=== PATIENT | female | born 1980 | race Caucasian/White ===

== ENCOUNTER 2021-11-01 09:51 | Outpatient (REF) | payer OTHER, SELFPAY ==
[2021-11-01 10:08] LABS: MANUAL DIFF FLAG NO
[2021-11-01 10:41] LABS: Basophils Absolute Auto 0.1 X10*3/uL (0.0-0.2); Basophils Percent Auto 0.6 % (0-2); Eosinophils Absolute Auto 0.1 X10*3/uL (0.0-0.4); Eosinophils Percent Auto 1.7 % (0-4); Hematocrit 39.1 % (37.0-47.0); Imm Gran Abs Auto 0.02 X10*3/uL (0.00-0.03); Imm Gran Pct Auto 0.2 % (0.0-0.4); Lymphocytes Absolute Auto 2.2 X10*3/uL (1.2-4.9); Lymphocytes Percent Auto 27.1 % (20-40); Mean Corpuscular HGB Conc 33.2 g/dl (31.0-35.0); Mean Corpuscular Hemoglobin 30.3 pg (27.0-33.0); Mean Corpuscular Volume 91.1 fL (80.0-98.0); Mean Platelet Volume 10.3 fL (9.4-12.3); Monocytes Absolute Auto 0.7 X10*3/uL (0.1-1.2); Monocytes Percent Auto 8.6 % (2-11); Neutrophils Absolute Auto 4.9 x10*3/uL (2.0-8.3); Neutrophils Percent Auto 61.8 % (45-73); Platelet Count 341 X10*3/uL (160-400); Red Blood Count 4.29 X10*6/uL (4.20-5.50)
[2021-11-01 10:59] LABS: Alanine Aminotransferase 18 U/L (0-31); Albumin Level 4.3 g/dL (3.5-5.0); Alkaline Phosphatase 62 U/L (39-117); Anion Gap 11 (12-20); Aspartate Amino Transferase 15 U/L (5-31); Bilirubin Total 1.2 mg/dL (0.0-1.0); Blood Urea Nitrogen 10 mg/dL (9-16); Calcium 9.5 mg/dL (8.4-10.2); Carbon Dioxide 26 mmol/L (22-29); Chloride 107 mmol/L (96-108); Cholesterol 170 mg/dL; Estimated Glomerular Filt Rate > 60; Glucose Fasting 91 mg/dL (60-99); HDL Cholesterol 43 mg/dL; LDL Cholesterol Calculated 110 mg/dl; Potassium 4.9 mmol/L (3.3-5.1); Sodium 139 mmol/L (135-145); Total Protein 7.3 g/dL (6.5-8.0); Triglycerides 89 mg/dL
[2021-11-01 11:07] LABS: Appearance Urine HAZY; Color Urine YELLOW; Glucose Urine UA NEG (NEG); Leukocyte Esterase Urine NEG (NEG); Nitrite Urine NEG (NEG); Specific Gravity - Urine 1.025 (1.005-1.025); Urine Blood NEG (NEG); Urine Ketones NEG (NEG); Urine Protein NEG (NEG-TRACE)
[2021-11-01 11:19] LABS: TSH reflex Free T4 1.54 uIU/mL (0.32-4.0)
== END 2021-11-01 09:52 | disposition home or self-care (01) ==
LOC: HO.LAB 09:51
PROVIDERS: PCP Internal Medicine; Visit Provider Internal Medicine
DX: Z00.00 Encounter for general adult medical examination without abnormal findings (principal); E66.9 Obesity, unspecified
CPT/HCPCS: 36415; 80053; 80061; 81003; 84443; 85025

== ENCOUNTER 2023-03-16 13:55 | Outpatient (AMB) | payer OTHER, SELFPAY ==
[2023-03-16 14:16] VITALS: BP 118/70; PULSE 102; O2SAT 97; BMI 37.4
--- NOTE | 2023-03-16 14:16 | MHC.PC.OV ---
Vital Signs 03/16/23 14:16 Height 5 ft 3 in Weight 211 lb 6 oz BMI 37.4 BP 118/70 Blood Pressure Location Lt brachial Position Sitting Pulse 102 H Pulse Source Pulse Oximeter Pulse Oximetry (%) 97 Oxygen Delivery Method Room Air Intake Visit Reasons: annual PE Combine Operator Required: No Accompanied by: Self / Same As Patient Allergies No Known Allergies Allergy (Verified 03/16/23 15:40) Medication List - Last Reconciled 03/16/23 by Deacon Murphy MD No Known Home Meds Tobacco use date assessed: 03/16/23 Dental Screening Dental Screen Date: 03/16/23 Did you have a dental visit in the last 12 months?: Yes Did you have a dental problem in the last 6 months where you did not have access to dental care?: No Was dental information given to patient?: Patient has dentist HPI annual PE HPI Details Patient comes in today for her annual physical examination States that she feels okay although she is not happy to find out that she gained some weight again from a year ago Would like to have her thyroid tested again along with all of her other routine labs when we order them for this year She denies any headaches or dizziness Denies any chest pains, no SOB No nausea/vomiting, no abdominal pain No change in bowel habits noted Denies any acute urinary symptoms States that she is scheduled for her annual mammogram next week and for her pap smear and 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 in a couple of week [facility] Medical History Obesity (BMI 30-39.9) Surgical History Hx of tubal ligation Family History Mother Family history of thyroid problem Father High blood pressure Family history of thyroid problem Social History Housing: House Alcohol intake: current Alcohol intake frequency: holidays/special occasions only Patient Tobacco Use Status: Never used Tobacco Second Hand Smoke Exposure: No service: No Current occupational status: employed 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 1. Little interest or pleasure in doing things: not at all 2. Feeling down, depressed, or hopeless: not at all 3. Trouble falling or staying asleep, or sleeping too much: not at all 4. Feeling tired or having little energy: not at all 5. Poor appetite or overeating: not at all 6. Feeling bad about yourself - or that you are a failure or have let yourself or your family down: not at all 7. Trouble concentrating on things, such as reading the newspaper or watching television: not at all 8. Moving or speaking so slowly that other people could have noticed. Or the opposite - being so fidgety or restless that you have been moving around a lot more than usual: not at all 9. Thoughts that you would be better off or of hurting yourself in some way: not at all Total score: 0 Depression Screening Interpretation: Negative 12046 - PHQ-9 Billing: Yes Source: Developed by Drs. Bogdan Pool, Cat Flores, Mykel Mariano and colleagues, with an educational kelby from [employer]. Thrive Questionnaire Date Thrive assessed: 03/16/23 I am a: Patient What is your living situation today?: I have a steady place to live Within the past 12 months, did the food you bought not last and you didn't have the money to get more?: Never true Within the past 12 months, did you worry whether your food would run out before you got money to buy more?: Never true Do you have trouble paying for medicines?: No Do you have trouble getting transportation to medical appointments?: No Do you have trouble paying your heating and electricity bill?: No Do you have trouble taking care of your child, family member or friend?: No Do you have trouble with day-to-day activities such as bathing, preparing meals, shopping, managing finances, etc.?: No Are you currently unemployed and looking for a job?: No Are you interested in more education?: No Please select the resources that you would like help with: None Currently or been in a relationship where the following occur: no concerns reported AUDIT C Alcohol Use Questionnaire (AUDIT-C) 1. How often do you have a drink containing alcohol?: Monthly or less 2. How many drinks containing alcohol do you have on a typical day when you are drinking?: 1 or 2 3. How often do you have six or more drinks on one occasion?: Never Total Score: 1 Score Reviewed/Action Taken: Yes KIRA-7 AMB Questionnaire KIAR-7 Date KIRA - 7 assessed: 03/16/23 Feeling nervous, anxious, or on edge: 0 = Not at all Not being able to stop or control worryin = Not at all Worrying too much about different things: 0 = Not at all Trouble relaxin = Not at all Being so restless that it is hard to sit still: 0 = Not at all Becoming easily annoyed or irritable: 0 = Not at all Feeling afraid as if something awful might happen: 0 = Not at all Total KIRA-7 score (0-4 normal; 5-9 mild; 10-14 moderate; 15-21 severe): 0 Source: Developed by Drs. Bogdan Pool, Cat Flores, Mykel Mariano and colleagues, with an educational kelby from [employer]. Review of Systems Const Denies chills, Denies fatigue, Denies fever(s), Denies headache(s) and Denies malaise Eyes Denies blurry vision, Denies change in vision, Denies irritation and Denies itchy eyes ENT Denies dysphagia, Denies dizziness, Denies otalgia, Denies headache(s), Denies nasal congestion, Denies neck pain, Denies odynophagia, Denies sinus pain and Denies sore throat Card Denies chest pain, Denies rapid heart rate, Denies irregular heart rhythm, Denies palpitations and Denies dyspnea Resp Denies chest congestion, Denies cough, Denies dyspnea and Denies wheezing GI Denies abdominal pain, Denies constipation, Denies dysphagia, Denies heartburn, Denies diarrhea, Denies nausea, Denies odynophagia and Denies vomiting Denies hematuria, Denies urinary frequency, Denies dysuria, Denies urinary incontinence and Denies urinary urgency Musc Denies back pain, Denies arthralgias, Denies joint swelling, Denies muscle weakness and Denies neck pain Skin/Breast Denies breast pain, Denies breast mass, Denies change in pigmentation, Denies lesions, Denies rash and Denies unusual bruising Neuro Denies dizziness, Denies headache(s) and Denies paresthesias Psych Denies anxiety and Denies depression Endo Denies fatigue and Denies palpitations Vinayak/Lymph Denies easy bruising Aller/Immun Denies itchy eyes and Denies wheezing Physical exam (Primary Care) Vital Signs: Last Vital Signs Pulse 102 H 03/16/23 14:16 BP 118/70 03/16/23 14:16 Pulse Ox 97 03/16/23 14:16 Oxygen Delivery Method Room Air 03/16/23 14:16 BMI result Body Mass Index 37.4 Tobacco/Smoking Status: Tobacco use Status Tobacco use date assessed 03/16/23 03/16/23 14:18 Patient Tobacco Use Status Never used Tobacco 03/16/23 14:18 PHQ-9: PHQ-9 Score PHQ-9: Total score 0 03/16/23 15:34 Depression Screening Interpretation: Negative Thrive Assessment: Date of Thrive Assessment Date Thrive assessed 03/16/23 03/16/23 14:18 Currently or been in a relationship where the following occur: no concerns reported Const General: no acute distress, alert and awake Orientation/consciousness: patient oriented x3 HENMT Head: Yes normocephalic and Yes atraumatic Ears: external ears normal, TM's normal bilaterally and EAC's normal General nose exam: No nasal discharge present Face and sinus: Yes normal facial exam and Yes sinuses nontender Teeth and gingiva: dentition normal Throat: Yes posterior oropharynx normal and Yes tonsils normal (no TP congestion) Eyes Eyelids: Yes eyelids normal Conjunctivae: conjunctivae normal Pupils: Equal, round and reactive pupils present EOM: EOMs intact bilaterally Neck Neck: Yes no lymphadenopathy and Yes supple Thyroid: Thyroid normal Resp Auscultation: clear to auscultation bilaterally, no rales and no wheezes Cardio Rate: regular rate Rhythm: regular rhythm Heart sounds: no murmurs GI Palpation (GI): Soft to palpation, nontender and No hepatosplenomegaly present Auscultation: normal bowel sounds General: Yes no CVA tenderness Back/Spine/Pelvis Back: no CVA tenderness Thoracic/Lumbar Spine: thoracic and lumbar spine normal to inspection Skin Lesions: no lesions Rashes: no rashes Neuro General: patient oriented x3, moves all extremities, no focal motor deficits and CN's II-XI intact bilaterally Cranial nerves: Yes Equal, round and reactive pupils present Cognition (Neuro): normal cognition Gait exam (Neuro): Normal gait present Extrem General: Yes no clubbing, cyanosis or edema Assessment and Plan Assessment & Plan (1) Annual physical exam: Code(s): Z00.00 - Encounter for general adult medical examination without abnormal findings Plan: Check labs As mentioned, she is scheduled for her annual mammogram next week and for her 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 Panel Fast Today E78.00 - Pure hypercholesterolemia, unspecified, Z00.00 - Encounter for general adult medical examination without abnormal findings Lipid Panel Today E78.00 - Pure hypercholesterolemia, unspecified, Z00.00 - Encounter for general adult medical examination without abnormal findings TSH reflex Free T4 Today E66.9 - Obesity, unspecified, E78.00 - Pure hypercholesterolemia, unspecified, Z00.00 - Encounter for general adult medical examination without abnormal findings Vitamin D 25-OH Total Today E55.9 - Vitamin D deficiency, unspecified, Z00.00 - Encounter for general adult medical examination without abnormal findings Complete Blood Count Auto Diff Today D64.9 - Anemia, unspecified, Z00.00 - Encounter for general adult medical examination without abnormal findings UA CC w/rflx Micro + Cult Today R30.0 - Dysuria, Z00.00 - Encounter for general adult medical examination without abnormal findings Coding Level of Care Code Est Pt Prev Care 40-64y(89718) Diagnoses Annual physical exam Z00.00 Obesity (BMI 30-39.9) E66.9
== END 2023-03-16 15:49 | disposition home or self-care (01) ==
PROVIDERS: PCP Internal Medicine; Visit Provider Internal Medicine
DX: Z00.00 Encounter for general adult medical examination without abnormal findings (principal); E66.9 Obesity, unspecified; Z68.37 Body mass index [BMI] 37.0-37.9, adult
CPT/HCPCS: 99396

== ENCOUNTER 2023-04-12 09:36 | Inpatient (IN) | payer OTHER, SELFPAY ==
--- NOTE | ~2023-04-12 | CT_ITS ---
EXAMINATION: CT ABDOMEN AND PELVIS WITH CONTRAST CLINICAL INFORMATION: Painless jaundice. COMPARISON: Right upper quadrant ultrasound 04/12/2023 TECHNIQUE: Multidetector volumetric images were obtained from the superior aspect of the liver through the pubic symphysis following administration 85 mL of Omnipaque 350 intravenous contrast. Sagittal and coronal reformatted images were obtained on the technologist's workstation. Oral contrast: No This CT examination was performed using dose optimization techniques as appropriate, variously including the following: *Automated exposure control *Adjustment of mA and/or kV according to patient size (this includes techniques or standardized protocols for targeted exams where dose is matched to indication/reason for exam; i.e. extremities or head) *Use of iterative reconstruction technique DLP: 808 mGy-cm FINDINGS: LUNG BASES: The visualized lung bases are unremarkable. LIVER, GALLBLADDER, AND BILIARY TREE: The liver is normal in size and contour. No focal hepatic lesion or biliary ductal dilatation is present. Gallstones. PANCREAS: Normal contour. No ductal dilatation. SPLEEN: Not enlarged. 8 mm hypodensity too small to characterize. ADRENAL GLANDS: No adrenal mass. KIDNEYS AND URETERS: The kidneys are symmetric in size and enhancement. No hydronephrosis or perinephric stranding. BLADDER: Unremarkable. GASTROINTESTINAL TRACT: Small and large bowel loops are of normal caliber. No small bowel obstruction. Appendix is within normal. ABDOMINAL WALL: No significant hernia is appreciated. LYMPH NODES: No bulky abdominal or pelvic lymphadenopathy. VASCULAR: Normal caliber abdominal aorta. PELVIC VISCERA: Anteverted uterus. OSSEOUS STRUCTURES: No destructive bone lesions. CT/CT abdomen pelvis w IV con IMPRESSION: Cholelithiasis.
--- NOTE | ~2023-04-12 | MR_ITS ---
EXAMINATION: MR ABDOMEN WITHOUT CONTRAST CLINICAL INFORMATION: Painless jaundice. COMPARISON: Ultrasound imaging and CT imaging of abdomen from 04/12/2023. TECHNIQUE: MR imaging of the abdomen is performed using standard sequences on a high-field magnet without intravenous contrast. Examination includes heavily T2-weighted MRCP sequences. FINDINGS: LUNG BASES: Normal. No pulmonary consolidation or pleural effusion. LIVER: Liver has normal size, contour and parenchymal signal. No hepatic mass. No cirrhotic morphology or steatosis. GALLBLADDER AND BILIARY TREE: Gallbladder is physiologically distended and contains a 1.1 cm stone. No gallbladder wall thickening or pericholecystic fluid. The common duct has normal smooth contour; it measures 2-3 mm diameter. No common duct stricture or choledocholithiasis. No intrahepatic ductal dilatation. PANCREAS: Normal. No pancreatic divisum. No edema, pancreatic ductal dilatation or mass. SPLEEN: Normal size. 0.8 cm simple cyst of the inferior spleen. ADRENAL GLANDS: Normal. KIDNEYS: Kidneys are normal in size. No renal mass, hydronephrosis or perinephric edema. BOWEL AND PERITONEUM: Stomach is unremarkable. No dilated loops of bowel. No bowel wall thickening or mesenteric fat stranding. No abdominal free fluid. VASCULATURE: Normal for a noncontrast examination. LYMPH NODES: No pathologic sized lymph nodes in the abdomen. SKELETAL: No suspicious bone lesions. Hemangioma of the L2 vertebral body. MR/MR MRCP IMPRESSION: * Cholelithiasis without evidence of acute cholecystitis, choledocholithiasis or biliary tract obstruction. * There is a 0.8 cm simple cyst of the inferior spleen. * Pancreas is normal.
--- NOTE | ~2023-04-12 | US_ITS ---
EXAMINATION: US abdomen limited, US duplex arterial venous comp CLINICAL INFORMATION: Jaundice and right upper quadrant pain. COMPARISON: None. TECHNIQUE: Real-time imaging of the abdominal viscera. Color and spectral Doppler evaluation of the hepatic vasculature. FINDINGS: LIVER: Normal. The liver demonstrates normal size, contour and echogenicity. No focal liver lesion. No intrahepatic biliary duct dilatation. SPLENIC VEIN: Patent with normal waveform. HEPATIC VEINS: Patent with normal waveforms. PORTAL VEINS: Patent with normal waveforms and hepatopetal flow. HEPATIC ARTERIES: Normal upstroke and diastolic flow. INFERIOR VENA CAVA: Patent with normal waveform. GALLBLADDER: Cholelithiasis without evidence of cholecystitis. COMMON BILE DUCT: Normal in caliber measuring 0.4 cm in diameter. PANCREAS: Normal. The visualized pancreatic head and body are normal in appearance. The remainder of the pancreas is obscured from visualization by the overlying bowel gas. RIGHT KIDNEY: Normal. No hydronephrosis. No renal calculi or focal parenchymal lesions. The kidney measures 10.3 cm in maximum dimension SPLEEN: Normal. The spleen measures 10.3 cm in maximum dimension. FREE FLUID: None. US/US duplex arterial venous comp IMPRESSION: Normal-appearing liver. No overt cirrhotic morphology. No biliary ductal dilatation. Normal size spleen. No evidence of portal hypertension or portal vein thrombosis.
--- NOTE | ~2023-04-12 | US_ITS ---
EXAMINATION: US abdomen limited, US duplex arterial venous comp CLINICAL INFORMATION: Jaundice and right upper quadrant pain. COMPARISON: None. TECHNIQUE: Real-time imaging of the abdominal viscera. Color and spectral Doppler evaluation of the hepatic vasculature. FINDINGS: LIVER: Normal. The liver demonstrates normal size, contour and echogenicity. No focal liver lesion. No intrahepatic biliary duct dilatation. SPLENIC VEIN: Patent with normal waveform. HEPATIC VEINS: Patent with normal waveforms. PORTAL VEINS: Patent with normal waveforms and hepatopetal flow. HEPATIC ARTERIES: Normal upstroke and diastolic flow. INFERIOR VENA CAVA: Patent with normal waveform. GALLBLADDER: Cholelithiasis without evidence of cholecystitis. COMMON BILE DUCT: Normal in caliber measuring 0.4 cm in diameter. PANCREAS: Normal. The visualized pancreatic head and body are normal in appearance. The remainder of the pancreas is obscured from visualization by the overlying bowel gas. RIGHT KIDNEY: Normal. No hydronephrosis. No renal calculi or focal parenchymal lesions. The kidney measures 10.3 cm in maximum dimension SPLEEN: Normal. The spleen measures 10.3 cm in maximum dimension. FREE FLUID: None. US/US abdomen limited IMPRESSION: Normal-appearing liver. No overt cirrhotic morphology. No biliary ductal dilatation. Normal size spleen. No evidence of portal hypertension or portal vein thrombosis.
[2023-04-12 10:22] VITALS: BP 141/87; PULSE 87; RESP 16; TEMP 36.7; O2SAT 97; BMI 39.4
[2023-04-12 10:40] LABS: MANUAL DIFF FLAG NO
[2023-04-12 10:42] LABS: Basophils Absolute Auto 0.1 X10*3/uL (0.0-0.2); Basophils Percent Auto 1.1 % (0-2); Eosinophils Absolute Auto 0.1 X10*3/uL (0.0-0.4); Eosinophils Percent Auto 1.8 % (0-4); Hematocrit 39.6 % (37.0-47.0); Hemoglobin 13.6 g/dl (12.0-16.0); Imm Gran Abs Auto 0.01 X10*3/uL (0.00-0.03); Imm Gran Pct Auto 0.2 % (0.0-0.4); Lymphocytes Absolute Auto 1.9 X10*3/uL (1.2-4.9); Lymphocytes Percent Auto 29.6 % (20-40); Mean Corpuscular HGB Conc 34.3 g/dl (31.0-35.0); Mean Corpuscular Hemoglobin 30.7 pg (27.0-33.0); Mean Corpuscular Volume 89.4 fL (80.0-98.0); Mean Platelet Volume 10.2 fL (9.4-12.3); Monocytes Absolute Auto 0.9 X10*3/uL (0.1-1.2); Monocytes Percent Auto 13.7 % (2-11); Neutrophils Absolute Auto 3.5 x10*3/uL (2.0-8.3); Neutrophils Percent Auto 53.6 % (45-73); Platelet Count 320 X10*3/uL (160-400); Red Blood Count 4.43 X10*6/uL (4.20-5.50); White Blood Count 6.5 X10*3/uL (4.8-10.8)
[2023-04-12 10:57] LABS: Alanine Aminotransferase 1974 U/L (0-31); Alkaline Phosphatase 210 U/L (39-117); Anion Gap 11 (12-20); Aspartate Amino Transferase 1232 U/L (5-31); Bilirubin Direct 7.1 mg/dL (0.0-0.5); Bilirubin Total 10.1 mg/dL (0.0-1.0); Blood Urea Nitrogen 8 mg/dL (9-16); Calcium 9.7 mg/dL (8.4-10.2); Carbon Dioxide 26 mmol/L (22-29); Chloride 106 mmol/L (96-108); Creatinine Clr Calc Pharmacy 97.1; Estimated Glomerular Filt Rate > 60; Glucose Random 83 mg/dL (60-115); Lipase 34 U/L (8-78); Potassium 3.8 mmol/L (3.3-5.1); Sodium 139 mmol/L (135-145); Total Protein 7.2 g/dL (6.5-8.0)
--- NOTE | 2023-04-12 13:05 | ED.GENADULT ---
HPI - General Adult General Chief complaint: Abdominal Pain Stated complaint: yellow eyes Time Seen by Provider: 04/12/23 12:19 Source: patient Mode of arrival: ambulatory History of Present Illness HPI narrative: 42 year old female with no chronic medical history presents with 2 day history of nausea, yellow sclera, and darker urine. Patient reports that on 04/08, she had a piece of pizza late at night and then had a constant, burning, epigastric pain, with associated dizziness and nausea, that lasted until Sunday. By Sunday, her pain and dizziness had resolved. On Sunday, her noted yellowing of her eyes and skin. Patient then noticed that her urine was darker, orange in appearance, and had a foul smell. Endorses persistent nausea today. Reports a funny taste in her mouth that she cannot describe. States she has not eaten or drank anything today in anticipation for labs. Last BM Tuesday 04/10, states it was normal for her. Denies any abdominal pain, vomiting, diarrhea, constipation, fevers, chills, urinary symptoms, pain elsewhere, skin changes. Reports minimal alcohol intake in social situations, stating she might have a couple beers or a glass of wine on the weekend. No cigarette smoking or drug use. No abdominal surgeries. No family history of liver or gallbladder issues. Unsure if she's fully up to date on vaccines. Follows with PCP. complaint: upper abd pain a few days ago followed by jaundice Onset (ago): day(s) Location: eyes Quality: constant Associated symptoms: nausea/vomiting Treatments prior to arrival: other (Tried Tums Sunday for abdominal pain.) Related Data Home Medications Medication Instructions Recorded Confirmed No Known Home Meds 03/16/23 03/16/23 Allergies Allergy/AdvReac Type Severity Reaction Status Date / Time No Known Allergies Allergy Verified 03/16/23 15:40 Review of Systems Review of Systems: Yes all other systems are reviewed and are negative PMFSH Past Medical History Medical History Obesity (BMI 30-39.9) Surgical History Hx of tubal ligation Family History Family History Mother Family history of thyroid problem Father High blood pressure Family history of thyroid problem Social History Social History Housing: House Alcohol intake: current Alcohol intake frequency: holidays/special occasions only Patient Tobacco Use Status: Never used Tobacco Second Hand Smoke Exposure: No Advance Directives: No Advance Directives Information Provided: Yes service: No Current occupational status: employed 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 Cognitive needs: No Hearing needs: No Vision needs: Yes Physical Exam ED Vital Signs: Vital Signs - 24 hr 04/12/23 10:22 04/12/23 15:19 Temperature 98.1 F 98.5 F Pulse Rate 87 77 Respiratory Rate 16 14 Blood Pressure 141/87 H 125/78 Pulse Oximetry 97 97 Oxygen Delivery Method Room Air BMI result Body Mass Index 39.4 Const General: cooperative, healthy appearing, comfortable and no acute distress Nutritional Appearance: obese Orientation/consciousness: patient oriented x3 Eyes Sclerae: scleral abnormal (Bilateral jaundice of sclera) Resp Effort & Inspection: normal respiratory effort and able to speak in complete sentences Auscultation: clear to auscultation bilaterally Cardio Rate: regular rate Rhythm: regular rhythm GI Inspection: Yes normal to inspection Palpation (GI): Soft to palpation, nontender, no guarding and No hepatosplenomegaly present Auscultation: normal bowel sounds Skin General skin exam: jaundice Neuro General: patient oriented x3 Medications Administered Discontinued Medications Generic Name Dose Route Start Last Admin Trade Name Freq PRN Reason Stop Dose Admin Iohexol 100 ml 04/12/23 15:37 04/12/23 15:37 Iohexol 350 Mg/Ml 100 Ml Infus..Btl IV 04/12/23 15:38 85 ml ONCE ONE Administration Medical Decision Making Medical Decision Making MDM Narrative: 42 year old female presents to ER for evaluation of yellow eyes, yellow skin, darker urine. PE reveals jaundice of skin, as well as scleral icterus. Abdomen is soft and nontender throughout all 4 quadrants. Bowel sounds normoactive. Workup included: CBC, BMP, PT/INR, liver panel, lipase, UA, UhCG, US abdomen. Liver panel revealed elevated total bilirubin (10.1), direct bilirubin (7.1), AST 1232, ALT 974, alk phos 210. Rest WNL. Heart and lungs CTA. Abdomen soft and nontender. Ultrasound showing cholelithiasis without any evidence of gallbladder wall thickening or ductal dilatation. Therefore CT scan was done to look for possible tumor or mass. This only redemonstrated cholelithiasis without any other acute findings. Case was discussed with Dr. Romero who is in favor of admission for observation, trending of LFTs and MRCP in the morning. Patient updated on results and plan of care. She is agreeable. Differential Diagnosis Differential Diagnoses: The differential diagnosis associated with the presentation includes Cholelithiasis, cholecystitis, choledocholithiasis, cholangitis, acute liver failure, liver cancer, acute hepatits, NAFLD, CHUN Admission/Observation Consideration of admission/observation: Escalation of care including admission/observation considered Consult Healthcare Provider Management of the patient was discussed with: Hospitalist and [employer] Technical Assistant Dr. Romero from GI recommend admitting for observation, repeat LFTs, MRCP in the morning. CBD stone can be passed without ductal dilatation Lab Data MDM Lab Attestation statement: I reviewed the patient's lab results. Acute liver failure with hyperbilirubinemia and transaminitis 04/12/23 10:35 04/12/23 10:35 Labs: Lab Results 04/12/23 04/12/23 04/12/23 Range/Units 10:35 14:06 15:14 WBC 6.5 (4.8-10.8) X10*3/uL RBC 4.43 (4.20-5.50) X10*6/uL Hgb 13.6 (12.0-16.0) g/dl Hct 39.6 (37.0-47.0) % MCV 89.4 (80.0-98.0) fL MCH 30.7 (27.0-33.0) pg MCHC 34.3 (31.0-35.0) g/dl RDW 15.0 (11.0-16.0) % Plt Count 320 (160-400) X10*3/uL MPV 10.2 (9.4-12.3) fL Immature Gran % (Auto) 0.2 (0.0-0.4) % Neut % (Auto) 53.6 (45-73) % Lymph % (Auto) 29.6 (20-40) % [place] % (Auto) 13.7 H (2-11) % Eos % (Auto) 1.8 (0-4) % Baso % (Auto) 1.1 (0-2) % Lymph # (Auto) 1.9 (1.2-4.9) X10*3/uL [place] # (Auto) 0.9 (0.1-1.2) X10*3/uL Eos # (Auto) 0.1 (0.0-0.4) X10*3/uL Baso # (Auto) 0.1 (0.0-0.2) X10*3/uL Abs Immat Gran (auto) 0.01 (0.00-0.03) X10*3/uL Absolute Neuts (auto) 3.5 (2.0-8.3) x10*3/uL Absolute Nucleated RBC 0.000 (0.0-0.012) X10*3/uL Nucleated RBC % (auto) 0.0 (0.0-0.2) /100WBC PT 11.3 (11.1-13.3) SEC INR 0.9 (0.9-1.1) Sodium 139 (135-145) mmol/L Potassium 3.8 D (3.3-5.1) mmol/L Chloride 106 (96-108) mmol/L Carbon Dioxide 26 (22-29) mmol/L Anion Gap 11 L (12-20) BUN 8 L (9-16) mg/dL Creatinine 0.80 (0.5-1.4) mg/dL Estim Creat Clear Calc 97.1 Estimated GFR > 60 Random Glucose 83 (60-115) mg/dL Calcium 9.7 (8.4-10.2) mg/dL Total Bilirubin 10.1 H (0.0-1.0) mg/dL Direct Bilirubin 7.1 H (0.0-0.5) mg/dL AST 1232 H (5-31) U/L ALT 1974 H (0-31) U/L Alkaline Phosphatase 210 H (39-117) U/L Total Protein 7.2 (6.5-8.0) g/dL Albumin 4.0 (3.5-5.0) g/dL Lipase 34 (8-78) U/L Urine Color Gregg Urine Appearance Clear Urine pH 6.0 (5.0-9.0) Ur Specific [place] 1.025 (1.005-1.025) Urine Protein Trace (Neg-Trace) mg/dL Urine Glucose (UA) Negative (Negative) mg/dL Urine Ketones 40 (Negative) mg/dL Urine Blood Negative (Negative) Urine Nitrite Negative (Negative) Ur Leukocyte Esterase Trace H (Negative) Urine RBC 3-5 H (0-2) /HPF Urine WBC 0-5 (0-5) /HPF Ur Squamous Epith Cells 11-20 (0-2) /HPF Calcium Oxalate Crystal Present Urine Bacteria 4+ (None Seen) Hyaline Casts 0-2 (0-2) /LPF Urine Test NEGATIVE (NEGATIVE) Independent Interpretation I performed an independent interpretation of an: Ultrasound and CT Scan Interpretation: U/S with gallstones, no CBD dilatation. agree w/ radiology read CT scan with gallstones, no evidence of hepatobiliary tumor appreciated, agree w/radiologist read Radiology Impression Discussion of test interpretation with radiology: I have reviewed the radiologist's reading. Radiologist Impression: EXAMINATION: US abdomen limited, US duplex arterial venous comp CLINICAL INFORMATION: Jaundice and right upper quadrant pain. COMPARISON: None. TECHNIQUE: Real-time imaging of the abdominal viscera. Color and spectral Doppler evaluation of the hepatic vasculature. FINDINGS: LIVER: Normal. The liver demonstrates normal size, contour and echogenicity. No focal liver lesion. No intrahepatic biliary duct dilatation. SPLENIC VEIN: Patent with normal waveform. HEPATIC VEINS: Patent with normal waveforms. PORTAL VEINS: Patent with normal waveforms and hepatopetal flow. HEPATIC ARTERIES: Normal upstroke and diastolic flow. INFERIOR VENA CAVA: Patent with normal waveform. GALLBLADDER: Cholelithiasis without evidence of cholecystitis. COMMON BILE DUCT: Normal in caliber measuring 0.4 cm in diameter. PANCREAS: Normal. The visualized pancreatic head and body are normal in appearance. The remainder of the pancreas is obscured from visualization by the overlying bowel gas. RIGHT KIDNEY: Normal. No hydronephrosis. No renal calculi or focal parenchymal lesions. The kidney measures 10.3 cm in maximum dimension SPLEEN: Normal. The spleen measures 10.3 cm in maximum dimension. FREE FLUID: None. US/US duplex arterial venous comp IMPRESSION: Normal-appearing liver. No overt cirrhotic morphology. No biliary ductal dilatation. Normal size spleen. No evidence of portal hypertension or portal vein thrombosis. EXAMINATION: CT ABDOMEN AND PELVIS WITH CONTRAST CLINICAL INFORMATION: Painless jaundice. COMPARISON: Right upper quadrant ultrasound 04/12/2023 TECHNIQUE: Multidetector volumetric images were obtained from the superior aspect of the liver through the pubic symphysis following administration 85 mL of Omnipaque 350 intravenous contrast. Sagittal and coronal reformatted images were obtained on the technologist's workstation. Oral contrast: No This CT examination was performed using dose optimization techniques as appropriate, variously including the following: *Automated exposure control *Adjustment of mA and/or kV according to patient size (this includes techniques or standardized protocols for targeted exams where dose is matched to indication/reason for exam; i.e. extremities or head) *Use of iterative reconstruction technique DLP: 808 mGy-cm FINDINGS: LUNG BASES: The visualized lung bases are unremarkable. LIVER, GALLBLADDER, AND BILIARY TREE: The liver is normal in size and contour. No focal hepatic lesion or biliary ductal dilatation is present. Gallstones. PANCREAS: Normal contour. No ductal dilatation. SPLEEN: Not enlarged. 8 mm hypodensity too small to characterize. ADRENAL GLANDS: No adrenal mass. KIDNEYS AND URETERS: The kidneys are symmetric in size and enhancement. No hydronephrosis or perinephric stranding. BLADDER: Unremarkable. GASTROINTESTINAL TRACT: Small and large bowel loops are of normal caliber. No small bowel obstruction. Appendix is within normal. ABDOMINAL WALL: No significant hernia is appreciated. LYMPH NODES: No bulky abdominal or pelvic lymphadenopathy. VASCULAR: Normal caliber abdominal aorta. PELVIC VISCERA: Anteverted uterus. OSSEOUS STRUCTURES: No destructive bone lesions. CT/CT abdomen pelvis w IV con IMPRESSION: Cholelithiasis. Independent Historian Clinical information obtained from an independent historian. History obtained from or confirmed by: Spouse External Record Review External record reviewed: Prior outpatient labs Critical Care Time Critical Care Time Critical Care Time: Yes Total Critical Care Time: 38 Attestation: I have personally provided critical care time exclusive of time spent on separately billable procedures. Time includes review of lab data, radiology results, discussion with consultants, and monitoring for potential decompensation. Intervention performed as documented. Discharge Plan Discharge Clinical Impression: Painless jaundice, Abnormal liver function tests Patient Disposition: Admitted As Inpatient
[2023-04-12 14:26] LABS: INTERNATIONAL NORM RATIO 0.9 (0.9-1.1); Prothrombin Time 11.3 SEC (11.1-13.3)
[2023-04-12 15:19] VITALS: BP 125/78; PULSE 77; RESP 14; TEMP 36.9; O2SAT 97
--- NOTE | 2023-04-12 15:19 | PC.NURSE ---
PT IN NO ACUTE DISTRESS, SCLERA IS JAUNDICE AND HAS BILIARY COLORED URINE. IV ACCESS WAS GAINED FOR CT SCAN.
[2023-04-12 15:22] LABS: Appearance Urine Clear; Color Urine Orange; Glucose Urine UA Negative (Negative); Leukocyte Esterase Urine Trace (Negative); Nitrite Urine Negative (Negative); Specific Gravity - Urine 1.025 (1.005-1.025); UMIC TRIGGER UACC YES; Urine Blood Negative (Negative); Urine Ketones 40 mg/dL (Negative); Urine Protein Trace mg/dL (Neg-Trace)
[2023-04-12 15:26] LABS: UPreg QC Valid YES; Urine Pregnancy NEGATIVE (NEGATIVE)
[2023-04-12 15:37] LABS: Bacteria Urine 4+ (None Seen); Calcium Oxalate Crystals Urine Present; Hyaline Casts Urine 0-2 /LPF (0-2); WBC Urine 0-5 /HPF (0-5)
[2023-04-12] MEDS: iohexoL 350 MG/ML 100 ML INFUS..BTL IV (15:37)
--- NOTE | 2023-04-12 17:32 | PM.GICN ---
History of Present Illness Data of Consult Service Date: 04/12/23 Requesting physician: Ebony Yeung Primary Care Provider: Deacon Murphy MD HPI Reason for consult: Jaundice, gallstones 42 YF presented to [facility] on 04/12/23 with nausea, yellow sclera, and darker urine since 04/10/23. Patient reports that on 04/08, she had a piece of pizza late at 11 pm and then at 1 am noted 7/10 constant, burning, upper abdominal pain with associated GUTIERREZ, dizziness and nausea. Abd pain lasted until Sunday night and then resolved. On Sunday, her noted that her eyes and skin were yellow. Patient then noticed that her urine was darker, orange in appearance, and had a foul smell. Patient endorses persistent nausea today. Reports a funny taste in her mouth that she cannot describe. States she has not eaten or drank anything today in anticipation for labs. Last BM Tuesday 04/10, states it was normal for her. Denies any abdominal pain, vomiting, diarrhea, constipation, fevers, chills, urinary symptoms, pain elsewhere, skin changes. Pt denies smoking or drug abuse and reports minimal alcohol intake in social situations, stating she might have a couple beers or a glass of wine on the weekend. Pt denies any hx of liver disease in the past or abdominal surgeries. 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 No family history of liver or gallbladder issues, or colon cancer. Her Patrenal great GM of liver cancer Treatments prior to arrival: other (Tried Tums Sunday for abdominal pain.) 04/12/[address] SCAN SHOWED: LIVER, GALLBLADDER, AND BILIARY TREE: The liver is normal in size and contour. No focal hepatic lesion or biliary ductal dilatation is present. Gallstones. Review of Systems Review of Systems: Yes all other systems are reviewed and are negative PMFSH Past Medical History Medical History Gallstones Obesity (BMI 30-39.9) Family History Family History Mother Family history of thyroid problem Father High blood pressure Family history of thyroid problem Surgical History Surgical History Hx of tubal ligation Social History Social History Household Members: Spouse and Children Housing: House Do you presently have visiting nurse or other home services: No Alcohol intake: unknown Patient Tobacco Use Status: Never used Tobacco e-Cigarette/Vaping Use: Never Used Second Hand Smoke Exposure: No service: No Current occupational status: employed 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 Current occupational exposures/hazards: No Cognitive needs: No Hearing needs: No Vision needs: Yes Meds Allergies Allergy/AdvReac Type Severity Reaction Status Date / Time No Known Allergies Allergy Verified 08/13/23 13:07 Physical Exam Vital Signs: Vital Signs: Last Vital Signs Temp 98.5 F 04/12/23 15:19 Pulse 77 04/12/23 15:19 Resp 14 04/12/23 15:19 BP 125/78 04/12/23 15:19 Pulse Ox 97 04/12/23 15:19 O2 Del Method Room Air 04/12/23 15:19 BMI result Body Mass Index 39.4 Const: General: healthy appearing and no acute distress Nutritional Appearance: obese Orientation/consciousness: patient oriented x3 Limitations: no limitations HEENT: Head: Yes normal to inspection Ears: hearing grossly normal bilaterally Eyes: Sclerae: scleral abnormal (Jaundiced) Pupils: Equal, round and reactive pupils present Neck: Neck: Yes normal visual inspection Chest: Chest palpation & inspection: normal inspection of the chest Resp: Effort & Inspection: normal respiratory effort Auscultation: clear to auscultation bilaterally Cardio: Palpation: normal PMI Rate: regular rate Rhythm: regular rhythm Heart sounds: S1 normal heart sound present, S2 normal heart sound present and no murmurs GI: Palpation (GI): Soft to palpation, nontender and No hepatosplenomegaly present Auscultation: normal bowel sounds Rectal Exam - Female: deferred Skin: General skin exam: no rashes or lesions noted Neuro: General: patient oriented x3, gait normal and moves all extremities Cranial nerves: Yes Equal, round and reactive pupils present Psych: Appearance: grossly normal Mental Status: mental status grossly normal Results Labs 04/12/23 10:35 04/15/23 06:05 Labs: Short CBC 04/12/23 Range/Units 10:35 WBC 6.5 (4.8-10.8) X10*3/uL Hgb 13.6 (12.0-16.0) g/dl Hct 39.6 (37.0-47.0) % Plt Count 320 (160-400) X10*3/uL BMP 04/12/23 10:35 Sodium 139 Potassium 3.8 D Chloride 106 Carbon Dioxide 26 BUN 8 L Creatinine 0.80 Calcium 9.7 Liver Function 04/12/23 Range/Units 10:35 Total Bilirubin 10.1 H (0.0-1.0) mg/dL Direct Bilirubin 7.1 H (0.0-0.5) mg/dL AST 1232 H (5-31) U/L ALT 1974 H (0-31) U/L Alkaline Phosphatase 210 H (39-117) U/L Albumin 4.0 (3.5-5.0) g/dL Urine 04/12/23 Range/Units 15:14 Urine Color [place] Urine Appearance Clear Urine pH 6.0 (5.0-9.0) Ur Specific [place] 1.025 (1.005-1.025) Urine Protein Trace (Neg-Trace) mg/dL Urine Glucose (UA) Negative (Negative) mg/dL Assessment and Plan (1) Painless jaundice: Status: Acute (2) Gallstones: Status: Inactive Plan 42 year old obese female seen at [facility] on 04/12/23 with nausea, yellow sclera, and darker urine since 04/10/23. Patient reports an episode of abdominal pain on Sunday night followed by jaundice Labs showed elevated LFTs Abd US and CT scan showed gallstones without CBD dilation. Jaundice is most likely due to CBD stone. RECOMMENDATIONS: 1. Obtain Hepatitis A, B and C serologies 2. MRCP to rule out CBD stone. Pt will need an ERCP if MRCP is positive for choledocholithiasis. 3. Follow LFTs daily 4. Surgical consult for Lap Mariely after above 04/13/23 MRCP SHOWED: * Cholelithiasis without evidence of acute cholecystitis, choledocholithiasis or biliary tract obstruction. * There is a 0.8 cm simple cyst of the inferior spleen. * Pancreas is normal. Time Spent With Patient Time: Total time managing care of this patient today ____ minutes. Procedures Date of Service Date of Service: 02/09/24
--- NOTE | 2023-04-12 17:56 | P.HPHOSP_ITS ---
History of Present Illness Date of Service: 04/12/23 Chief Complaint: Jaundice A 42 years old female with no significant PMH who presents to ED with reported worsening Jaundice for the last 3 days. She reports Abd pain last Sunday after having Pizza which was Epigastric, constant associated with nausea but no fever, chills. Noted change in urine color the next day as he son and told her about the chance in sclera color. No more episodes of abdominal pain reported. She has been feeling more nausous today but denies any abd pain, vomiting, change in bowel habit or itching. No personal of liver problems. her GM w Liver cancer. Admitted for further evaluation and monitoring as T.Bili of 11, Direct of 7 with Transaminitis. Review of Systems 2 Review of Systems: No fever, chills or weakness No chest pain, palpitation No shortness of breath or coughing No abdominal pain, reporting nausea change urine color No any rash or wounds Yes all other systems are reviewed and are negative [facility] Medical History Obesity (BMI 30-39.9) Family History Mother Family history of thyroid problem Father High blood pressure Family history of thyroid problem Surgical History Hx of tubal ligation Social History Housing: House Alcohol intake: unknown Patient Tobacco Use Status: Never used Tobacco Second Hand Smoke Exposure: No Advance Directives: No Advance Directives Information Provided: Yes Patient : No service: No Current occupational status: employed 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 Cognitive needs: No Hearing needs: No Vision needs: Yes Meds Allergies Allergy/AdvReac Type Severity Reaction Status Date / Time No Known Allergies Allergy Verified 03/16/23 15:40 Active Medications: Current Medications Acetaminophen (Acetaminophen 325 Mg Tablet) 650 mg PO Q6H PRN PRN Reason: Pain, Mild (Pain Scale 1-3) Enoxaparin Sodium (Enoxaparin Sodium 40 Mg/0.4 Ml Syringe) 40 mg SUBCUT Q24H RUBIO Ondansetron HCl (Ondansetron Hcl 4 Mg/2 Ml Vial) 4 mg IVPUSH Q8H PRN PRN Reason: Nausea and Vomiting Sodium Chloride (0.9 % Sodium Chloride Flush 3 Ml Syringe) 3 ml IVFLUSH QSHIFT [facility] Home Medications Medication Instructions Recorded Confirmed Last Taken Type No Known Home Meds 03/16/23 04/12/23 Unknown History Physical Exam 2 Vital Signs and Narrative: Vital Signs: Last Vital Signs Temp 98.5 F 04/12/23 15:19 Pulse 77 04/12/23 15:19 Resp 14 04/12/23 15:19 BP 125/78 04/12/23 15:19 Pulse Ox 97 04/12/23 15:19 O2 Del Method Room Air 04/12/23 15:19 BMI result Body Mass Index 39.4 Const: Other: Constitutional : Awake, interactive, not in distress Eye: Jaundice Neck : Normal inspection, Supple Cardiovascular : RRR, no JVP, no lower extremity edema Respiratory : good bilateral air entry, no crackles, wheezes or rhonchi Gastrointestinal: soft, lax, Normal bowel sounds, Non tender Skin : Warm, Dry, jaundiced Neurological : Alert & oriented x3, No focal deficit , CN 2-12 within normal Results Labs 04/12/23 10:35 04/12/23 10:35 Labs: Laboratory Results - last 24 hr 04/12/23 04/12/23 04/12/23 10:35 14:06 15:14 MCV 89.4 MCH 30.7 MCHC 34.3 RDW 15.0 Plt Count 320 MPV 10.2 Immature Gran % (Auto) 0.2 Neut % (Auto) 53.6 Lymph % (Auto) 29.6 [place] % (Auto) 13.7 H Eos % (Auto) 1.8 Baso % (Auto) 1.1 Lymph # (Auto) 1.9 [place] # (Auto) 0.9 Eos # (Auto) 0.1 Baso # (Auto) 0.1 Abs Immat Gran (auto) 0.01 Absolute Neuts (auto) 3.5 Absolute Nucleated RBC 0.000 Nucleated RBC % (auto) 0.0 PT 11.3 INR 0.9 Anion Gap 11 L Estim Creat Clear Calc 97.1 Estimated GFR > 60 Random Glucose 83 Calcium 9.7 Total Bilirubin 10.1 H Direct Bilirubin 7.1 H AST 1232 H ALT 1974 H Alkaline Phosphatase 210 H Total Protein 7.2 Albumin 4.0 Lipase 34 Urine Color [place] Urine Appearance Clear Urine pH 6.0 Ur Specific [place] 1.025 Urine Protein Trace Urine Glucose (UA) Negative Urine Ketones 40 Urine Blood Negative Urine Nitrite Negative Ur Leukocyte Esterase Trace H Urine RBC 3-5 H Urine WBC 0-5 Ur Squamous Epith Cells 11-20 Calcium Oxalate Crystal Present Urine Bacteria 4+ Hyaline Casts 0-2 Urine Test NEGATIVE Imaging Radiologist's Impressions: Impressions Abdomen Ultrasound 04/12/23 12:15 IMPRESSION: Normal-appearing liver. No overt cirrhotic morphology. No biliary ductal dilatation. Normal size spleen. No evidence of portal hypertension or portal vein thrombosis. Doppler Study Ultrasound 04/12/23 12:15 IMPRESSION: Normal-appearing liver. No overt cirrhotic morphology. No biliary ductal dilatation. Normal size spleen. No evidence of portal hypertension or portal vein thrombosis. Abdomen/Pelvis CT 04/12/23 15:43 IMPRESSION: Cholelithiasis. Assessment and Plan (1) Gallstones: Status: Acute (2) Abnormal liver function tests: Status: Acute (3) Painless jaundice: Status: Acute Plan A 42 years old female with no significant PMH who presents to ED with reported worsening Jaundice for the last 3 days. Jaundice, acute Seems more of a direct jaundice No clear obstruction on CT, US but has GBS check Hepatitis profile to do MRCP GI following follow LFT DVT PPx Lovenox The patient will likely need 2 overnight hospital stay for further imaging, specialist consult and possible need for procedure. Time Spent With Patient Time: Total time managing care of this patient today ____ minutes. Quality Stroke Does the patient have a stroke diagnosis?: No VTE Prior VTE?: No VTE Risk Level:: Medical - moderate - high VTE Device Contraindication: Treatment Not Indicated VTE Drug Contraindication: N/A - Med Ordered
--- NOTE | 2023-04-12 18:01 | PC.NURSE ---
MRI SCREENING FROM COMPLETED
--- NOTE | 2023-04-12 19:47 | PC.NURSE ---
Attempted to call report at [phone], no answer.
[2023-04-12] MEDS: Enoxaparin Sodium 40 MG/0.4 ML SYRINGE SUBCUT (19:58)
[2023-04-12] MEDS: 0.9 % Sodium Chloride Flush 3 ML SYRINGE IVFLUSH (21:06)
[2023-04-12 21:08] VITALS: BMI 39.7
[2023-04-13 04:00] VITALS: BP 113/65; PULSE 77; RESP 20; TEMP 36.3; O2SAT 98
[2023-04-13 04:54] LABS: HBS Num1 0.43 mIU/mL (0-7.99); HBsAGNum1 0.25 S/CO (0.00-0.99); Hepatitis B Core Antibody Nonreactive (Nonreactive); Hepatitis B Surface Antigen Negative (Negative); ~HepC Num1 0.04 S/CO (0.00-0.79); ~Hepatitis A Antibody IgM Nonreactive (Nonreactive); ~Hepatitis B Surface Antibody NONREACTIVE (Nonreactive); ~Hepatitis C Antibody Nonreactive (Nonreactive)
[2023-04-13 06:05] LABS: Alanine Aminotransferase 1594 U/L (0-31); Albumin Level 3.4 g/dL (3.5-5.0); Alkaline Phosphatase 190 U/L (39-117); Anion Gap 12 (12-20); Aspartate Amino Transferase 919 U/L (5-31); Bilirubin Direct 7.4 mg/dL (0.0-0.5); Bilirubin Total 10.1 mg/dL (0.0-1.0); Blood Urea Nitrogen 7 mg/dL (9-16); Calcium 8.9 mg/dL (8.4-10.2); Carbon Dioxide 23 mmol/L (22-29); Chloride 105 mmol/L (96-108); Creatinine Clr Calc Pharmacy 105.5; Estimated Glomerular Filt Rate > 60; Glucose Random 91 mg/dL (60-115); Potassium 3.6 mmol/L (3.3-5.1); Sodium 136 mmol/L (135-145); Total Protein 6.1 g/dL (6.5-8.0)
[2023-04-13 07:08] VITALS: BP 116/68; PULSE 88; RESP 18; TEMP 36.2; O2SAT 98
--- NOTE | 2023-04-13 07:59 | PHA.MEDREC ---
Pharmacy Consult ? Medication Reconciliation Pharmacy has completed the medication reconciliation.
[2023-04-13] MEDS: 0.9 % Sodium Chloride Flush 3 ML SYRINGE IVFLUSH ×3 (09:40→20:27)
[2023-04-13] MEDS: Acetaminophen 325 MG TABLET 650 MG PO ×2 (11:40→17:56)
[2023-04-13] MEDS: ondansetron HCL 4 MG/2 ML VIAL IVPUSH ×2 (11:41→20:35)
--- NOTE | 2023-04-13 13:56 | HO.PM.IMPN ---
Subjective Subjective Date of Service: 04/13/23 Interval History: Seen and evaluated Feels ok, no pain or chills Bilirubin trending down Physical Exam Vital Signs: Vital Signs: Last Vital Signs Temp 97.2 F 04/13/23 07:08 Pulse 88 04/13/23 07:08 Resp 18 04/13/23 07:08 BP 116/68 04/13/23 07:08 Pulse Ox 98 04/13/23 07:08 O2 Del Method Room Air 04/13/23 07:08 BMI result Body Mass Index 39.7 Const: Other: Constitutional : Awake, interactive, not in distress Eye: Jaundice Neck : Normal inspection, Supple Cardiovascular : RRR, no JVP, no lower extremity edema Respiratory : good bilateral air entry, no crackles, wheezes or rhonchi Gastrointestinal: soft, lax, Normal bowel sounds, Non tender Skin : Warm, Dry, jaundiced Neurological : Alert & oriented x3, No focal deficit Objective Data Active Medications Acetaminophen (Acetaminophen 325 Mg Tablet) 650 mg PO Q6H PRN PRN Reason: Pain, Mild (Pain Scale 1-3) Last Admin: 04/13/23 11:40 Dose: 650 mg Documented By: ESTELITA Enoxaparin Sodium (Enoxaparin Sodium 40 Mg/0.4 Ml Syringe) 40 mg SUBCUT Q24H [facility] Last Admin: 04/12/23 19:58 Dose: 40 mg Documented By: CHRISTEN Ondansetron HCl (Ondansetron Hcl 4 Mg/2 Ml Vial) 4 mg IVPUSH Q8H PRN PRN Reason: Nausea and Vomiting Last Admin: 04/13/23 11:41 Dose: 4 mg Documented By: ESTELITA Sodium Chloride (0.9 % Sodium Chloride Flush 3 Ml Syringe) 3 ml IVFLUSH QSHIFT [facility] Last Admin: 04/13/23 09:40 Dose: 3 ml Documented By: ANNE Labs 04/12/23 10:35 04/13/23 05:26 Labs: Laboratory Results - last 24 hr 04/12/23 04/12/23 04/12/23 14:06 15:14 18:17 PT 11.3 INR 0.9 Anion Gap Estim Creat Clear Calc Estimated GFR Random Glucose Calcium Total Bilirubin Direct Bilirubin AST ALT Alkaline Phosphatase Total Protein Albumin Urine Color [place] Urine Appearance Clear Urine pH 6.0 Ur Specific [place] 1.025 Urine Protein Trace Urine Glucose (UA) Negative Urine Ketones 40 Urine Blood Negative Urine Nitrite Negative Ur Leukocyte Esterase Trace H Urine RBC 3-5 H Urine WBC 0-5 Ur Squamous Epith Cells 11-20 Calcium Oxalate Crystal Present Urine Bacteria 4+ Hyaline Casts 0-2 Urine Test NEGATIVE Hepatitis A IgM Ab Nonreactive Hep Bs Antigen Negative Hep Bs Antibody NONREACTIVE Hep B Core Total Ab Nonreactive Hepatitis C Ab (EIA) Nonreactive 04/13/23 05:26 PT INR Anion Gap 12 Estim Creat Clear Calc 105.5 Estimated GFR > 60 Random Glucose 91 Calcium 8.9 D Total Bilirubin 10.1 H Direct Bilirubin 7.4 H AST 919 H ALT 1594 H Alkaline Phosphatase 190 H Total Protein 6.1 L Albumin 3.4 L Urine Color Urine Appearance Urine pH Ur Specific [place] Urine Protein Urine Glucose (UA) Urine Ketones Urine Blood Urine Nitrite Ur Leukocyte Esterase Urine RBC Urine WBC Ur Squamous Epith Cells Calcium Oxalate Crystal Urine Bacteria Hyaline Casts Urine Test Hepatitis A IgM Ab Hep Bs Antigen Hep Bs Antibody Hep B Core Total Ab Hepatitis C Ab (EIA) Assessment and Plan (1) Gallstones: Status: Acute (2) Painless jaundice: Status: Acute (3) Abnormal liver function tests: Status: Acute Plan A 42 years old female with no significant PMH who presents to ED with reported worsening Jaundice for the last 3 days. Jaundice, acute Picture of obstructive jaundice LFT trending down No clear obstruction on CT, US or MRCP but has GBS Hepatitis profile negative Pending US w doppler to r\o portal vein thrombosis GI following follow LFT DVT PPx Lovenox The patient will likely need overnight hospital stay for further imaging, specialist consult and possible need for procedure. Time Spent With Patient Time: Total time managing care of this patient today ____ minutes. Quality Stroke Does the patient have a stroke diagnosis?: No VTE Prior VTE?: No VTE Risk Level:: Medical - moderate - high VTE Device Contraindication: Treatment Not Indicated VTE Drug Contraindication: N/A - Med Ordered
[2023-04-13 15:14] VITALS: BP 116/59; PULSE 78; RESP 24; TEMP 36.6; O2SAT 95
--- NOTE | 2023-04-13 15:46 | MHC.CM.PN ---
FEMALE 42 DX JAUNDICE. She lives with her spouse and 2 sons. She is independent with all functional mobility. A HCP has been documented and scanned into the EMR. DP home self care. Family will provide transport home.
[2023-04-13] MEDS: Enoxaparin Sodium 40 MG/0.4 ML SYRINGE SUBCUT (17:56)
[2023-04-13 19:52] VITALS: BP 113/67; PULSE 77; RESP 18; TEMP 36.8; O2SAT 95
--- NOTE | 2023-04-13 23:23 | PC.NURSE ---
Care assumed 19:00. Patient seen on S3/med-surg. A&Ox4. Pt c/o intermittent tingling with described diminished sensation to RT anterior thigh compared to left. +pulses. No other deficits. +perrl 4mm brisk. Denies headache, vision changes, dizziness. Speech clear. MAEE, ambulates steady without issue. MD Guzman notified, no new orders given at this time. Denies pain. Hypoactive BSx4. Abd soft, non-tender. Given prn zofran 1x with +effect for nausea. Voiding cyu without issue. Safety measures in place. Handoff report given 23:00.
[2023-04-14 03:39] VITALS: BP 113/66; PULSE 77; RESP 18; TEMP 36.2; O2SAT 96
[2023-04-14 06:29] LABS: Alanine Aminotransferase 1403 U/L (0-31); Albumin Level 3.3 g/dL (3.5-5.0); Alkaline Phosphatase 190 U/L (39-117); Aspartate Amino Transferase 777 U/L (5-31); Bilirubin Direct 8.1 mg/dL (0.0-0.5); Bilirubin Total 10.6 mg/dL (0.0-1.0)
[2023-04-14 07:01] VITALS: BP 114/55; PULSE 80; RESP 16; TEMP 36.1; O2SAT 98
[2023-04-14] MEDS: 0.9 % Sodium Chloride Flush 3 ML SYRINGE IVFLUSH ×3 (09:29→23:45)
--- NOTE | 2023-04-14 13:20 | P.PNIM_ITS ---
Subjective Subjective Date of Service: 04/14/23 Interval History: Seen and evaluated Feels ok, no pain or chills Bilirubin went up a little, AST, ALT trending down MRCP showing no obstruction Review of Systems Review of Systems: Yes all other systems are reviewed and are negative Physical Exam 2 Vital Signs: Vital Signs: Last Vital Signs Temp 97 F 04/14/23 07:01 Pulse 80 04/14/23 07:01 Resp 16 04/14/23 07:01 BP 114/55 L 04/14/23 07:01 Pulse Ox 98 04/14/23 07:01 O2 Del Method Room Air 04/14/23 07:01 BMI result Body Mass Index 39.7 Const: Other: Constitutional : Awake, interactive, not in distress Eye: Jaundice Neck : Normal inspection, Supple Cardiovascular : RRR, no JVP, no lower extremity edema Respiratory : good bilateral air entry, no crackles, wheezes or rhonchi Gastrointestinal: soft, lax, Normal bowel sounds, Non tender Skin : Warm, Dry, jaundiced Neurological : Alert & oriented x3, No focal deficit Objective Data Active Medications Acetaminophen (Acetaminophen 325 Mg Tablet) 650 mg PO Q6H PRN PRN Reason: Pain, Mild (Pain Scale 1-3) Last Admin: 04/13/23 17:56 Dose: 650 mg Documented By: ESTELITA Enoxaparin Sodium (Enoxaparin Sodium 40 Mg/0.4 Ml Syringe) 40 mg SUBCUT Q24H [facility] Last Admin: 04/13/23 17:56 Dose: 40 mg Documented By: ESTELITA Ondansetron HCl (Ondansetron Hcl 4 Mg/2 Ml Vial) 4 mg IVPUSH Q8H PRN PRN Reason: Nausea and Vomiting Last Admin: 04/13/23 20:35 Dose: 4 mg Documented By: MELISA Sodium Chloride (0.9 % Sodium Chloride Flush 3 Ml Syringe) 3 ml IVFLUSH QSHIFT [facility] Last Admin: 04/14/23 09:29 Dose: 3 ml Documented By: MONIKA Labs 04/12/23 10:35 04/13/23 05:26 Labs: Laboratory Results - last 24 hr 04/14/23 06:00 Total Bilirubin 10.6 H Direct Bilirubin 8.1 H AST 777 H ALT 1403 H Alkaline Phosphatase 190 H Total Protein 6.0 L Albumin 3.3 L Assessment and Plan (1) Gallstones: Status: Acute (2) Painless jaundice: Status: Acute (3) Abnormal liver function tests: Status: Acute Plan A 42 years old female with no significant PMH who presents to ED with reported worsening Jaundice for the last 3 days. Jaundice, acute direct Picture of obstructive jaundice ; seems more 2/2 to passing stone LFT trending down, Bili lagging behind No clear obstruction on CT, US or MRCP but has GBS negative doppler for portal vein thrombosis Hepatitis profile negative GI following Surgery input appreciated, CCY likely tomorrow follow LFT DVT PPx Lovenox The patient will likely need overnight hospital stay for need for procedure and monitoring LFT Time Spent With Patient Time: Total time managing care of this patient today ____ minutes. Quality Stroke Does the patient have a stroke diagnosis?: No VTE Prior VTE?: No VTE Risk Level:: Medical - moderate - high VTE Device Contraindication: Treatment Not Indicated VTE Drug Contraindication: N/A - Med Ordered
--- NOTE | 2023-04-14 14:04 | P.PNGI_ITS ---
Subjective Subjective Date of Service: 04/14/23 Interval History: Patient feels basically fine, though concerned about her jaundice. She denies abdominal pain, pruritus, N/V, diarrhea. Critical Care Time (minutes): 0 Physical Exam 2 Vital Signs: Vital Signs: Last Vital Signs Temp 97 F 04/14/23 07:01 Pulse 80 04/14/23 07:01 Resp 16 04/14/23 07:01 BP 114/55 L 04/14/23 07:01 Pulse Ox 98 04/14/23 07:01 O2 Del Method Room Air 04/14/23 07:01 BMI result Body Mass Index 39.7 Const: General: cooperative, healthy appearing, comfortable, no acute distress, well developed, alert, awake and Physically active HEENT: Other: Icteric sclerae GI: Other: Abdomen-soft, NT, nondistended, no mass/rebound/guarding Objective Data Labs 04/12/23 10:35 04/13/23 05:26 Labs: Laboratory Results - last 24 hr 04/14/23 06:00 Total Bilirubin 10.6 H Direct Bilirubin 8.1 H AST 777 H ALT 1403 H Alkaline Phosphatase 190 H Total Protein 6.0 L Albumin 3.3 L Procedures Date of Service Date of Service: 04/14/23 Progress Note: A&P Assessment and plan (1) Acute hepatitis: Status: Acute (2) Jaundice: Status: Acute (3) Gallstones: Status: Acute Plan Imp: It appears that this reflects a primary liver process given her presentation and imaging studies with no sign of any biliary obstruction and minimal, if any, abdominal pain. She does have a gallstone but this does not seem to be playing a role in her clinical situation at the present time. Rec: R/O other primary issues that can cause liver disease such as autoimmune hepatitis and metabolic diseases. I have ordered the necessary tests for that. She may require a liver biopsy in the near future depending on her course and lab results.I would hold off on CCY for the time being, although that may be needed down the road as well. However, I think it would be important to have a better handle on the liver issue first. D/W patient in detail. Thanks. Time Spent With Patient Time: Total time managing care of this patient today ____ minutes. Quality Stroke Does the patient have a stroke diagnosis?: No VTE Prior VTE?: No VTE Risk Level:: Medical - moderate - high VTE Device Contraindication: Treatment Not Indicated VTE Drug Contraindication: N/A - Med Ordered
[2023-04-14 14:59] LABS: Monotest Negative (Negative)
[2023-04-14 15:02] LABS: INTERNATIONAL NORM RATIO 0.9 (0.9-1.1); Prothrombin Time 11.3 SEC (11.1-13.3)
[2023-04-14 15:07] LABS: Iron 170 mcg/dL (30-160); Percent Iron Saturation 53 % (15-50); Total Iron Binding Capacity 323 mcg/dL (228-428); Unsaturated Iron Binding 153 ug/dL
[2023-04-14 15:40] VITALS: BP 122/66; PULSE 71; RESP 18; TEMP 36.3; O2SAT 98
[2023-04-14 16:40] LABS: Ferritin 1578 ng/mL (10-250)
[2023-04-14] MEDS: Enoxaparin Sodium 40 MG/0.4 ML SYRINGE SUBCUT (17:42)
[2023-04-14 20:00] VITALS: BP 126/77; PULSE 85; RESP 17; TEMP 36.6; O2SAT 98
--- NOTE | 2023-04-14 21:52 | PM.CNGS ---
History of Present Illness Consult details Consult date: 04/14/23 Requesting physician: Bill Barragan Narrative: 42 year old female presented to the ER with some mild abdo pain a few days ago but with jaundice. Labs showed very elevated lfts with tbili 12 and ast and alt . Pt had u/s which showed no cholecystitis but gallbladder stone and no ductal dilatation with cbd at 4 mm. MRCP following day showed no CBD stone and duct 2mm. Today consult had for ? passing of stone and pt needing cholecystectomy. She has no pain feels hungry and great just wanting to have jaundice better. She is not itchy but sclera clearly icteric. GI consult done today concerned for primary liver issue vs choledocholithiasis issue. Pt denies family hx of GB disease or liver problems. Generally she is very healthy other than diabetic. Review of Systems Constitutional: Constitutional: Reports no additional constitutional complaints Eyes: Comments: sclera yellow ENT: Reports system reviewed and no additional complaints, except as documented Cardiovascular: Cardiovascular: Reports no additional cardiovascular complaints Respiratory: Respiratory: Reports no additional respiratory complaints Gastrointestinal: Gastrointestinal: Reports no additional gastrointestinal complaints Comments: no changes in BM Genitourinary: Genitourinary: Reports no additional female genitourinary complaints and Denies change in libido Musculoskeletal: Musculoskeletal: Reports no additional musculoskeletal complaints Psychiatric: Psychiatric: Denies change in libido Endocrine: Endocrine: Denies change in libido [facility] Past Medical History Medical History Obesity (BMI 30-39.9) Family History Family History Mother Family history of thyroid problem Father High blood pressure Family history of thyroid problem Surgical History Surgical History Hx of tubal ligation Social History Social History Household Members: Spouse and Children Housing: House Do you presently have visiting nurse or other home services: No Alcohol intake: unknown Patient Tobacco Use Status: Never used Tobacco Second Hand Smoke Exposure: No service: No Current occupational status: employed 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 Cognitive needs: No Hearing needs: No Vision needs: Yes Meds Allergies Allergy/AdvReac Type Severity Reaction Status Date / Time No Known Allergies Allergy Verified 03/16/23 15:40 Active Medications: Current Medications Acetaminophen (Acetaminophen 325 Mg Tablet) 650 mg PO Q6H PRN PRN Reason: Pain, Mild (Pain Scale 1-3) Last Admin: 04/13/23 17:56 Dose: 650 mg Enoxaparin Sodium (Enoxaparin Sodium 40 Mg/0.4 Ml Syringe) 40 mg SUBCUT Q24H [facility] Last Admin: 04/14/23 17:42 Dose: 40 mg Ondansetron HCl (Ondansetron Hcl 4 Mg/2 Ml Vial) 4 mg IVPUSH Q8H PRN PRN Reason: Nausea and Vomiting Last Admin: 04/13/23 20:35 Dose: 4 mg Sodium Chloride (0.9 % Sodium Chloride Flush 3 Ml Syringe) 3 ml IVFLUSH QSHIFT [facility] Last Admin: 04/14/23 15:58 Dose: 3 ml Home Medications Medication Instructions Recorded Confirmed Last Taken Type No Known Home Meds 03/16/23 04/12/23 Unknown History Physical Exam Vital Signs: Vital Signs: Last Vital Signs Temp 97.9 F 04/14/23 20:00 Pulse 85 04/14/23 20:00 Resp 17 04/14/23 20:00 BP 126/77 04/14/23 20:00 Pulse Ox 98 04/14/23 20:00 O2 Del Method Room Air 04/14/23 20:00 BMI result Body Mass Index 39.7 Const: General: cooperative, healthy appearing and comfortable Orientation/consciousness: patient oriented x3 HEENT: Head: Yes normal to inspection Eyes: Sclerae: scleral abnormal (very jaundiced bilaterally) Resp: Effort & Inspection: normal respiratory effort Auscultation: clear to auscultation bilaterally Cardio: Rate: regular rate Rhythm: regular rhythm GI: Other: soft nontender nondistended Skin: Other: jaundiced Neuro: General: patient oriented x3 and moves all extremities Extrem: General: Yes normal to inspection Psych: Appearance: grossly normal Mental Status: mental status grossly normal Speech and movement: Normal speech and movement present Affect: normal affect Attitude: cooperative Thought process: Loose association thought process present Results Labs 04/12/23 10:35 04/13/23 05:26 Labs: Abnormal lab results 04/14/23 04/14/23 Range/Units 06:00 14:23 Iron 170 H (30-160) mcg/dL % Saturation 53 H (15-50) % Ferritin 1578 H (10-250) ng/mL Total Bilirubin 10.6 H (0.0-1.0) mg/dL Direct Bilirubin 8.1 H (0.0-0.5) mg/dL AST 777 H (5-31) U/L ALT 1403 H (0-31) U/L Alkaline Phosphatase 190 H (39-117) U/L Total Protein 6.0 L (6.5-8.0) g/dL Albumin 3.3 L (3.5-5.0) g/dL Liver Function 04/14/23 Range/Units 06:00 Total Bilirubin 10.6 H (0.0-1.0) mg/dL Direct Bilirubin 8.1 H (0.0-0.5) mg/dL AST 777 H (5-31) U/L ALT 1403 H (0-31) U/L Alkaline Phosphatase 190 H (39-117) U/L Albumin 3.3 L (3.5-5.0) g/dL Urine 04/12/23 Range/Units 15:14 Urine Color [place] Urine Appearance Clear Urine pH 6.0 (5.0-9.0) Ur Specific [place] 1.025 (1.005-1.025) Urine Protein Trace (Neg-Trace) mg/dL Urine Glucose (UA) Negative (Negative) mg/dL Urine Test NEGATIVE (NEGATIVE) All other labs normal. Imaging Additional studies: initial u/s not showing cbd dilatation mrcp not showing stone and not showing cbd dilatation - no concerning findings with pancreas or liver noted Assessment and Plan (1) Jaundice: Status: Acute Plan 42 year old diabetic female with jaundice and elevated lfts now improving - initially thought to be due to passing of cbd gallstone but concern also for primary liver etiology as duct not dilated for this degree of elevated lfts and with normal duct size lfts improving but not as rapidly as would expect with a stone. agree with GI plan to w.u liver at this point no pressing need for cholecystectomy. if turns into primary liver etiology still would not do lap godfrey unless her cholelithiasis becomes symptomatic. will folow along. diabetic diet and follow lab trends. Time Spent With Patient Time: Total time managing care of this patient today ____ minutes. Procedures Date of Service Date of Service: 04/14/23
[2023-04-15 03:33] VITALS: BP 111/61; PULSE 87; RESP 18; TEMP 36.3; O2SAT 96
[2023-04-15 06:45] LABS: Alanine Aminotransferase 1458 U/L (0-31); Albumin Level 3.3 g/dL (3.5-5.0); Alkaline Phosphatase 182 U/L (39-117); Aspartate Amino Transferase 914 U/L (5-31); Bilirubin Direct 7.5 mg/dL (0.0-0.5); Bilirubin Total 9.7 mg/dL (0.0-1.0); Total Protein 6.1 g/dL (6.5-8.0)
[2023-04-15 06:48] LABS: Anion Gap 11 (12-20); Blood Urea Nitrogen 7 mg/dL (9-16); Calcium 9.5 mg/dL (8.4-10.2); Carbon Dioxide 23 mmol/L (22-29); Chloride 105 mmol/L (96-108); Estimated Glomerular Filt Rate > 60; Glucose Random 98 mg/dL (60-115); Potassium 3.9 mmol/L (3.3-5.1); Sodium 135 mmol/L (135-145)
[2023-04-15 07:09] LABS: Erythrocyte Sedimentation Rate 7 MM/HR (0-20)
[2023-04-15 07:14] VITALS: BP 106/59; PULSE 78; RESP 16; TEMP 36.1; O2SAT 96
[2023-04-15] MEDS: 0.9 % Sodium Chloride Flush 3 ML SYRINGE IVFLUSH (09:35)
--- NOTE | 2023-04-15 13:14 | P.DS_ITS ---
DS: Providers Provider Date of Service: 04/15/23 Date of admission: 04/12/23 17:49 Primary care physician: Deacon Murphy MD Consults: 04/12/23 17:52 Consult to Gastroenterology Routine Consulting Provider: Marek Romero Reason for consultation: Jaundice for eval and rec. 04/13/23 13:55 Consult to General Surgery Routine Consulting Provider[place] [facility] [facility] Reason for consultation: Obstructive jaundice, eval for Cholecystomy need DS: Diagnosis Discharge Diagnosis (1) Jaundice: Status: Acute (2) Acute hepatitis: Status: Acute (3) Gallstones: Status: Acute (4) Painless jaundice: Status: Acute (5) High serum ferritin: Status: Acute (6) Hypoalbuminemia: Status: Acute DS: Summary Hospital Course Hospital Course: Admission note HPI A 42 years old female with no significant PMH who presents to ED with reported worsening Jaundice for the last 3 days. She reports Abd pain last Sunday after having Pizza which was Epigastric, constant associated with nausea but no fever, chills. Noted change in urine color the next day as he son and told her about the chance in sclera color. No more episodes of abdominal pain reported. She has been feeling more nausous today but denies any abd pain, vomiting, change in bowel habit or itching. No personal of liver problems. her GM w Liver cancer. Admitted for further evaluation and monitoring as T.Bili of 11, Direct of 7 with Transaminitis. Hospital course Admitted for evaluation of Jaundice. No clear obstruction on CT, US or MRCP but has GBS which was evaluated by surgeon who postpone the need of CCY for the time being as the patient was evaluated by gastroenterology with a feeling of underlying medical problem rather than passing stone. negative doppler for portal vein thrombosis. Hepatitis profile , EBV negative , Pending [id number], Hemochromatosis DNA, JEANNINE, anti mitochondrial and smooth muscle Antibodies. LFT trended down during the hospital stay. patient felt ok overall tolerating diet with no reported pain. To repeat blood test next week To follow up with dr Romero for results of pending lab work To come back to the hospital for any worsening jaundice, fever or worsening lab results Time Spent with Patient Time attestation: Total time managing care of this patient today ____ minutes. Discharge coordination time: Greater than 30 minutes Quality: Safe Use of Opioids Does Pt have an Active Cancer Diagnosis on the Problem List?: No Quality: Stroke Does the patient have a stroke diagnosis?: No Physical Exam Vital Signs: Vital Signs: Last Vital Signs Temp 97 F 04/15/23 07:14 Pulse 78 04/15/23 07:14 Resp 16 04/15/23 07:14 BP 106/59 L 04/15/23 07:14 Pulse Ox 96 04/15/23 07:14 O2 Del Method Room Air 04/15/23 07:14 BMI result Body Mass Index 39.7 Const: Other: Constitutional : Awake, interactive, not in distress Eye: Jaundice Neck : Normal inspection, Supple Cardiovascular : RRR, no JVP, no lower extremity edema Respiratory : good bilateral air entry, no crackles, wheezes or rhonchi Gastrointestinal: soft, lax, Normal bowel sounds, Non tender Skin : Warm, Dry, jaundiced Neurological : Alert & oriented x3, No focal deficit DS: Data Data Completed and Pending Labs on day of discharge: Laboratory Results - last 24 hr 04/14/23 04/15/23 14:23 06:05 ESR 7 PT 11.3 INR 0.9 Sodium 135 Potassium 3.9 Chloride 105 Carbon Dioxide 23 Anion Gap 11 L BUN 7 L Creatinine 0.75 Estim Creat Clear Calc 104.0 Estimated GFR > 60 Random Glucose 98 Calcium 9.5 D Iron 170 H TIBC 323 % Saturation 53 H Unsat Iron Binding 153 Ferritin 1578 H Total Bilirubin 9.7 H Direct Bilirubin 7.5 H AST 914 H ALT 1458 H Alkaline Phosphatase 182 H Total Protein 6.1 L Albumin 3.3 L Monoscreen Negative Imaging MRI - abdomen: Radiologist's impression: ITS Impressions Abdomen Ultrasound 04/12/23 12:15 IMPRESSION: Normal-appearing liver. No overt cirrhotic morphology. No biliary ductal dilatation. Normal size spleen. No evidence of portal hypertension or portal vein thrombosis. Doppler Study Ultrasound 04/12/23 12:15 IMPRESSION: Normal-appearing liver. No overt cirrhotic morphology. No biliary ductal dilatation. Normal size spleen. No evidence of portal hypertension or portal vein thrombosis. Abdomen/Pelvis CT 04/12/23 15:43 IMPRESSION: Cholelithiasis. Cholangiopancreatography MRI 04/13/23 11:15 IMPRESSION: * Cholelithiasis without evidence of acute cholecystitis, choledocholithiasis or biliary tract obstruction. * There is a 0.8 cm simple cyst of the inferior spleen. * Pancreas is normal. Discharge Plan Discharge Anticipated Discharge Date/Time: 04/15/23 13:09 Patient Disposition: Home, Self-Care Discharge Diagnosis: Jaundice Gallbladder stones Hepatitis Referrals: Deacon Murphy MD [Primary Care Provider] - 1 Week Discharge Medications: No Action No Known Home Meds Discharge Orders: Discharge Order (Routine); Ordered 04/15/23 Ordered By: Bill Barragan Diet: Advance to usual diet Activity on Discharge: As tolerated Stand Alone Forms: Patient Portal Discharge page Other Ambulatory Orders: Liver Panel (Routine) Timeframe: 3 Days Facility: [facility] - Location: Laboratory Ordered By: Bill Barragan Care Plan Goals: Read below Health Concerns: Read below Plan of Treatment: Read below Assessment: You were admitted for evaluation of jaundice. found to have abnormal liver function with elevated enzymes. seen vocational training director and surgeon as images showed gallbladder stones. blood work showed elevated iron levels and some lab work still pending for Hemochromatosis and other possibilites. To repeat blood test next week To follow up with dr Romero for results of pending lab work come back to the hospital for any worsening jaundice, fever or worsening lab results
--- NOTE | 2023-04-15 13:45 | MHC.CM.PN ---
PT TO DC HOME TODAY WITH NO SERVICES PT TO ARRANGE TRANSPORT
[2023-04-16 13:33] LABS: Alpha 1 Anti-trypsin 187 mg/dL (83-199); Ceruloplasmin 34 mg/dL (18-53)
[2023-04-17 14:43] LABS: Mitochondrial Antibodies NEGATIVE (NEGATIVE)
[2023-04-18 11:53] LABS: Smooth Muscle Antibody <20 U (<20)
[2023-04-18 15:34] LABS: Anti Nuclear Antibody Screen NEGATIVE (NEGATIVE)
== END 2023-04-15 13:54 | disposition home or self-care (01) ==
LOC: HO.ED 16:28 → HO.EDOVER 18:04 → HO.S3 19:38
PROVIDERS: Internal Medicine; Physician Assistant; Admitting Provider Student in an Organized Health Care Education/Training Program; Emergency Provider Emergency Medicine; PCP Internal Medicine; Visit Provider Student in an Organized Health Care Education/Training Program
DX: B17.9 Acute viral hepatitis, unspecified (principal); E88.09 Other disorders of plasma-protein metabolism, not elsewhere classified; K80.20 Calculus of gallbladder without cholecystitis without obstruction; E11.9 Type 2 diabetes mellitus without complications
CPT/HCPCS: 36415; 74177; 74181; 76705; 80048; 80076; 81001; 81025; 81256; 82103; 82390; 82728; 83540; 83690; 85025; 85610; 85652; 86015; 86038; 86308; 86381; 86704; 86706; 86709; 86803; 87340; 93975; 99285; J1650; J2405; Q9967

== ENCOUNTER → 2023-04-12 17:49 | Outpatient (BNV) | payer OTHER, SELFPAY | PROVIDERS: Admitting Provider Student in an Organized Health Care Education/Training Program; Emergency Provider Emergency Medicine; PCP Internal Medicine; Visit Provider Student in an Organized Health Care Education/Training Program | DX: K80.20 Calculus of gallbladder without cholecystitis without obstruction (principal); R17 Unspecified jaundice; R79.89 Other specified abnormal findings of blood chemistry | CPT/HCPCS: 99222; 99232; 99239 ==

== ENCOUNTER → 2023-04-12 17:49 | Outpatient (BNV) | payer OTHER, SELFPAY | PROVIDERS: Admitting Provider Student in an Organized Health Care Education/Training Program; Emergency Provider Emergency Medicine; PCP Internal Medicine; Visit Provider Internal Medicine Gastroenterology | DX: R17 Unspecified jaundice (principal); K80.20 Calculus of gallbladder without cholecystitis without obstruction | CPT/HCPCS: 99499 ==

== ENCOUNTER → 2023-04-12 17:49 | Outpatient (BNV) | payer OTHER, SELFPAY | PROVIDERS: Admitting Provider Student in an Organized Health Care Education/Training Program; Emergency Provider Emergency Medicine; PCP Internal Medicine; Visit Provider Surgery | DX: R17 Unspecified jaundice (principal) | CPT/HCPCS: 99222 ==

== ENCOUNTER 2023-04-18 09:05 | Outpatient (REF) | payer OTHER, SELFPAY ==
[2023-04-18 09:19] LABS: MANUAL DIFF FLAG NO
[2023-04-18 10:15] LABS: Basophils Absolute Auto 0.1 X10*3/uL (0.0-0.2); Basophils Percent Auto 0.9 % (0-2); Eosinophils Absolute Auto 0.2 X10*3/uL (0.0-0.4); Eosinophils Percent Auto 2.3 % (0-4); Hematocrit 38.1 % (37.0-47.0); Imm Gran Abs Auto 0.01 X10*3/uL (0.00-0.03); Imm Gran Pct Auto 0.2 % (0.0-0.4); Lymphocytes Absolute Auto 1.9 X10*3/uL (1.2-4.9); Lymphocytes Percent Auto 27.8 % (20-40); Mean Corpuscular HGB Conc 34.1 g/dl (31.0-35.0); Mean Corpuscular Hemoglobin 30.3 pg (27.0-33.0); Mean Corpuscular Volume 88.8 fL (80.0-98.0); Mean Platelet Volume 11.4 fL (9.4-12.3); Monocytes Absolute Auto 0.9 X10*3/uL (0.1-1.2); Monocytes Percent Auto 13.1 % (2-11); Neutrophils Absolute Auto 3.7 x10*3/uL (2.0-8.3); Neutrophils Percent Auto 55.7 % (45-73); Platelet Count 331 X10*3/uL (160-400); Red Blood Count 4.29 X10*6/uL (4.20-5.50); Red Cell Distribution Width 16.4 % (11.0-16.0); White Blood Count 6.7 X10*3/uL (4.8-10.8)
[2023-04-18 10:29] LABS: Appearance Urine Cloudy; Color Urine Dark Yellow; Glucose Urine UA Negative (Negative); Leukocyte Esterase Urine Small (1+) (Negative); Nitrite Urine Positive (Negative); PH 5.5 (5.0-9.0); Specific Gravity - Urine 1.025 (1.005-1.025); UMIC TRIGGER UACC YES; Urine Blood Negative (Negative); Urine Ketones Negative (Negative); Urine Protein Trace mg/dL (Neg-Trace)
[2023-04-18 10:34] LABS: Bacteria Urine 4+ (None Seen); Hyaline Casts Urine 0-2 /LPF (0-2); RBC Urine 0-2 /HPF (0-2); Squamous Epithelial Cell Urine >20 /HPF (0-2); UACC Culture Trigger YES
[2023-04-18 10:52] LABS: Alanine Aminotransferase 1603 U/L (0-31); Albumin Level 3.9 g/dL (3.5-5.0); Alkaline Phosphatase 200 U/L (39-117); Anion Gap 12 (12-20); Aspartate Amino Transferase 1037 U/L (5-31); Bilirubin Direct 5.1 mg/dL (0.0-0.5); Bilirubin Total 7.9 mg/dL (0.0-1.0); Blood Urea Nitrogen 8 mg/dL (9-16); Calcium 9.6 mg/dL (8.4-10.2); Carbon Dioxide 25 mmol/L (22-29); Chloride 104 mmol/L (96-108); Cholesterol 178 mg/dL (<200); Estimated Glomerular Filt Rate > 60; Glucose Fasting 81 mg/dL (60-99); HDL Cholesterol 22 mg/dL (>40); LDL Cholesterol Calculated 119 mg/dL (<100); Potassium 4.1 mmol/L (3.3-5.1); Sodium 137 mmol/L (135-145); Triglycerides 186 mg/dL (<150)
[2023-04-18 11:07] LABS: TSH reflex Free T4 1.22 uIU/mL (0.32-4.0)
== END 2023-04-18 09:06 | disposition home or self-care (01) ==
LOC: HO.LAB 09:05
PROVIDERS: PCP Internal Medicine; Visit Provider Student in an Organized Health Care Education/Training Program
DX: Z00.00 Encounter for general adult medical examination without abnormal findings (principal); R17 Unspecified jaundice; B17.9 Acute viral hepatitis, unspecified; E55.9 Vitamin D deficiency, unspecified; E78.00 Pure hypercholesterolemia, unspecified; E66.9 Obesity, unspecified; D64.9 Anemia, unspecified
CPT/HCPCS: 36415; 80053; 80061; 80076; 81001; 82248; 82306; 84443; 85025; 87086; 87147

== ENCOUNTER 2023-04-18 15:10 | Outpatient (AMB) | payer OTHER, SELFPAY ==
--- NOTE | 2023-04-18 15:12 | MHC.PC.OV ---
Vital Signs 04/18/23 15:13 Height 5 ft 1 in Weight 206 lb BMI 38.9 BP 110/72 Blood Pressure Location Lt brachial Position Sitting Intake Visit Reasons: jaundice Intake Note: Patient here for HDF from [facility] disch 04/15/23 Jaundice Geographical Historian Required: No Accompanied by: Aunt Allergies No Known Allergies Allergy (Verified 04/18/23 16:18) Medication List - Last Reconciled 04/18/23 by Deacon Murphy MD No Known Home Meds Tobacco use date assessed: 03/16/23 Dental Screening Dental Screen Date: 04/18/23 Did you have a dental visit in the last 12 months?: Yes Did you have a dental problem in the last 6 months where you did not have access to dental care?: No Was dental information given to patient?: Patient has dentist HPI jaundice HPI Details Patient comes in today for her HDF follow up visit She was admitted to [facility] briefly for a few days late last week after she presented to the ER with increasing jaundice over a 3 day period Recalls that she was experiencing some epigastric pain and on and off nausea for a few days early last week after eating some pizza but did not throw up; her symptoms gradually subsided and she recalls that she never experienced any fever, chills or had any change in her bowel habits ot stools She was noted by family members though that her eyes were turning yellow over the next couple of days and she has also noticed a darkening in the color of her urine at the time Workups done in the ER revealed significantly elevated liver enzymes with AST of 914 and ALT of 1458 Total bilirubin and direct bilirubin were also elevated as well as her serum ferritin, which was at 1578 Test for mononucleosis him back negative Ultrasound done revealed no evidence of portal hypertension or portal vein thrombosis; the liver appears normal with no serotype changes and there are no biliary ductal dilatation. Spleen size is normal Abdominal and pelvic CT done revealed cholelithiasis without evidence of acute cholecystitis, choledocholithiasis or biliary tract obstruction and pancreas is normal Patient was eventually discharged home and instructed to follow-up with PCP and with GI [facility]O States that she feels okay Denies any recent cough or cold symptoms; denies any fever or sore throat She denies any headaches or dizziness Denies any chest pain, no shortness of breath No nausea / vomiting, no abdominal pain No change in bowel habits noted [facility] Medical History Gallstones Obesity (BMI 30-39.9) Surgical History Hx of tubal ligation Family History Mother Family history of thyroid problem Father High blood pressure Family history of thyroid problem Social History Household Members: Spouse and Children Housing: House Do you presently have visiting nurse or other home services: No Alcohol intake: unknown Patient Tobacco Use Status: Never used Tobacco e-Cigarette/Vaping Use: Never Used Second Hand Smoke Exposure: No service: No Current occupational status: employed 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 1. Little interest or pleasure in doing things: not at all 2. Feeling down, depressed, or hopeless: not at all 3. Trouble falling or staying asleep, or sleeping too much: not at all 4. Feeling tired or having little energy: not at all 5. Poor appetite or overeating: not at all 6. Feeling bad about yourself - or that you are a failure or have let yourself or your family down: not at all 7. Trouble concentrating on things, such as reading the newspaper or watching television: not at all 8. Moving or speaking so slowly that other people could have noticed. Or the opposite - being so fidgety or restless that you have been moving around a lot more than usual: not at all 9. Thoughts that you would be better off or of hurting yourself in some way: not at all Total score: 0 Depression Screening Interpretation: Negative 19442 - PHQ-9 Billing: Yes Source: Developed by Drs. Bogdan Pool, Cat Flores, Mykel Mariano and colleagues, with an educational kelby from [employer]. Thrive Questionnaire Date Thrive assessed: 09/13/23 I am a: Patient What is your living situation today?: I have a steady place to live Within the past 12 months, did the food you bought not last and you didn't have the money to get more?: Never true Within the past 12 months, did you worry whether your food would run out before you got money to buy more?: Never true Do you have trouble paying for medicines?: No Do you have trouble getting transportation to medical appointments?: No Do you have trouble paying your heating and electricity bill?: No Do you have trouble taking care of your child, family member or friend?: No Do you have trouble with day-to-day activities such as bathing, preparing meals, shopping, managing finances, etc.?: No Are you currently unemployed and looking for a job?: No Are you interested in more education?: No Please select the resources that you would like help with: None Currently or been in a relationship where the following occur: no concerns reported AUDIT C Alcohol Use Questionnaire (AUDIT-C) 1. How often do you have a drink containing alcohol?: Monthly or less 2. How many drinks containing alcohol do you have on a typical day when you are drinking?: 1 or 2 3. How often do you have six or more drinks on one occasion?: Never Total Score: 1 Score Reviewed/Action Taken: Yes KIRA-7 AMB Questionnaire KIRA-7 Date KIRA - 7 assessed: 03/16/23 Source: Developed by Drs. Bogdan Pool, Cat Flores, Mykel Mariano and colleagues, with an educational kelby from [employer]. Review of Systems Const Denies chills, Denies fatigue, Denies fever(s) and Denies headache(s) Eyes Denies change in vision ENT Denies dysphagia, Denies dizziness, Denies otalgia, Denies headache(s), Denies neck pain, Denies odynophagia and Denies sore throat Card Denies chest pain, Denies palpitations and Denies dyspnea Resp Denies cough and Denies dyspnea GI Denies abdominal pain, Denies constipation, Denies dysphagia, Denies heartburn, Denies diarrhea, Denies nausea, Denies odynophagia and Denies vomiting Denies difficulty voiding, Denies nocturia and Denies dysuria Musc Denies neck pain Skin/Breast Reports jaundice Neuro Denies dizziness and Denies headache(s) Endo Denies fatigue and Denies palpitations Physical exam (Primary Care) Vital Signs: Last Vital Signs BP 110/72 04/18/23 15:13 BMI result Body Mass Index 38.9 Tobacco/Smoking Status: Tobacco use Status Tobacco use date assessed 03/16/23 04/18/23 15:14 Patient Tobacco Use Status Never used Tobacco 04/18/23 15:14 e-Cigarette/Vaping Use Never Used 04/18/23 15:20 Depression Screening Interpretation: Negative Thrive Assessment: Date of Thrive Assessment Date Thrive assessed 04/13/23 04/18/23 15:14 Currently or been in a relationship where the following occur: no concerns reported Const General: no acute distress and alert HENMT Ears: TM's normal bilaterally and EAC's normal Throat: Yes posterior oropharynx normal and Yes tonsils normal (no TP congestion) Eyes Sclerae: scleral abnormal bilateral (icteric) Neck Neck: Yes no lymphadenopathy and Yes supple Resp Auscultation: clear to auscultation bilaterally, no rales and no wheezes Cardio Rate: regular rate Rhythm: regular rhythm Heart sounds: no murmurs GI Palpation (GI): Soft to palpation, nontender and No hepatosplenomegaly present Auscultation: normal bowel sounds Skin General skin exam: jaundice Extrem General: Yes no clubbing, cyanosis or edema Assessment and Plan Assessment & Plan (1) Jaundice: Code(s): R17 - Unspecified jaundice (2) Elevated LFTs: Code(s): R79.89 - Other specified abnormal findings of blood chemistry (3) High serum ferritin: Code(s): R79.89 - Other specified abnormal findings of blood chemistry (4) Cholelithiasis: Code(s): K80.20 - Calculus of gallbladder without cholecystitis without obstruction Qualifiers: Cholelithiasis location: gallbladder Cholecystitis presence: without cholecystitis Biliary obstruction: without biliary obstruction Qualified Code(s): K80.20 - Calculus of gallbladder without cholecystitis without obstruction Plan Work ups done recently revealed elevated LFTs and elevated serum ferritin level as well as elevated total and direct bilirubin level CT and cholangiopancreatography MRI revealed (+) cholelithiasis without evidence of acute cholecystitis, choledocholithiasis or biliary tract obstruction Will refer her to GI for further evaluation and management of her jaundice and elevated liver enzymes and serum ferritin Follow-up in 3 months Orders: Referrals Gastroenterology Referral R17 - Unspecified jaundice, R79.89 - Other specified abnormal findings of blood chemistry Coding Level of Care Code Est Pt Level 3 (31280) Diagnoses Jaundice R17 Elevated LFTs R79.89 High serum ferritin R79.89 Calculus of gallbladder without cholecystitis without obstruction K80.20 Cholelithiasis location: gallbladder Cholecystitis presence: without cholecystitis Biliary obstruction: without biliary obstruction
[2023-04-18 15:13] VITALS: BP 110/72; BMI 38.9
== END 2023-04-18 16:07 | disposition home or self-care (01) ==
PROVIDERS: PCP Internal Medicine; Visit Provider Internal Medicine
DX: R17 Unspecified jaundice (principal); R79.89 Other specified abnormal findings of blood chemistry; K80.20 Calculus of gallbladder without cholecystitis without obstruction
CPT/HCPCS: 99213

== ENCOUNTER 2023-04-24 09:58 | Outpatient (REF) | payer OTHER, SELFPAY ==
[2023-04-24 10:21] LABS: MANUAL DIFF FLAG NO
[2023-04-24 10:42] LABS: Basophils Absolute Auto 0.1 X10*3/uL (0.0-0.2); Basophils Percent Auto 0.9 % (0-2); Eosinophils Absolute Auto 0.2 X10*3/uL (0.0-0.4); Eosinophils Percent Auto 2.6 % (0-4); Hematocrit 38.4 % (37.0-47.0); Hemoglobin 12.9 g/dl (12.0-16.0); Imm Gran Abs Auto 0.03 X10*3/uL (0.00-0.03); Imm Gran Pct Auto 0.5 % (0.0-0.4); Lymphocytes Percent Auto 29.7 % (20-40); Mean Corpuscular HGB Conc 33.6 g/dl (31.0-35.0); Mean Corpuscular Hemoglobin 30.9 pg (27.0-33.0); Mean Corpuscular Volume 92.1 fL (80.0-98.0); Mean Platelet Volume 10.7 fL (9.4-12.3); Monocytes Absolute Auto 0.8 X10*3/uL (0.1-1.2); Monocytes Percent Auto 11.9 % (2-11); Neutrophils Absolute Auto 3.6 x10*3/uL (2.0-8.3); Neutrophils Percent Auto 54.4 % (45-73); Platelet Count 390 X10*3/uL (160-400); Red Blood Count 4.17 X10*6/uL (4.20-5.50); Red Cell Distribution Width 15.2 % (11.0-16.0); White Blood Count 6.6 X10*3/uL (4.8-10.8)
[2023-04-24 11:04] LABS: Appearance Urine Cloudy; Color Urine Dark Yellow; Glucose Urine UA Negative (Negative); Leukocyte Esterase Urine Small (1+) (Negative); Nitrite Urine Negative (Negative); UMIC TRIGGER UACC YES; Urine Blood Negative (Negative); Urine Ketones Negative (Negative); Urine Protein Negative (Neg-Trace)
[2023-04-24 11:10] LABS: Bacteria Urine 4+ (None Seen); Hyaline Casts Urine 0-2 /LPF (0-2); RBC Urine 0-2 /HPF (0-2); Squamous Epithelial Cell Urine >20 /HPF (0-2); UACC Culture Trigger YES
[2023-04-24 12:00] LABS: Alanine Aminotransferase 830 U/L (0-31); Albumin Level 3.9 g/dL (3.5-5.0); Alkaline Phosphatase 136 U/L (39-117); Anion Gap 11 (12-20); Aspartate Amino Transferase 336 U/L (5-31); Bilirubin Total 2.9 mg/dL (0.0-1.0); Blood Urea Nitrogen 8 mg/dL (9-16); Calcium 9.3 mg/dL (8.4-10.2); Carbon Dioxide 23 mmol/L (22-29); Chloride 107 mmol/L (96-108); Estimated Glomerular Filt Rate > 60; Glucose Random 89 mg/dL (60-115); Lactate Dehydrogenase 255 U/L (122-220); Potassium 4.1 mmol/L (3.3-5.1); Sodium 137 mmol/L (135-145)
[2023-04-24 12:15] LABS: Ferritin 539 ng/mL (10-250)
== END 2023-04-24 09:59 | disposition home or self-care (01) ==
LOC: HO.LAB 09:58
PROVIDERS: PCP Internal Medicine; Visit Provider Internal Medicine
DX: R17 Unspecified jaundice (principal); R79.89 Other specified abnormal findings of blood chemistry
CPT/HCPCS: 36415; 80053; 81001; 81003; 82728; 83615; 85025; 87086

== ENCOUNTER 2023-04-25 11:25 | Outpatient (REF) | payer OTHER, SELFPAY ==
[2023-04-25 13:03] LABS: INTERNATIONAL NORM RATIO 0.9 (0.9-1.1); Prothrombin Time 11.1 SEC (11.1-13.3)
[2023-04-25 13:32] LABS: Appearance Urine Clear; Color Urine Yellow; Glucose Urine UA Negative (Negative); Leukocyte Esterase Urine Negative (Negative); Nitrite Urine Negative (Negative); PH 6.5 (5.0-9.0); Urine Blood Negative (Negative); Urine Ketones Negative (Negative); Urine Protein Negative (Neg-Trace)
[2023-04-25 14:04] LABS: Alanine Aminotransferase 768 U/L (0-31); Albumin Level 4.2 g/dL (3.5-5.0); Alkaline Phosphatase 151 U/L (39-117); Aspartate Amino Transferase 297 U/L (5-31); Bilirubin Direct 1.9 mg/dL (0.0-0.5); Total Protein 7.6 g/dL (6.5-8.0)
[2023-04-26 08:49] LABS: Hepatitis A Antibody IgG Nonreactive (Nonreactive); Hepatitis A Antibody IgM 0.24 Index (0-0.79); ~Hepatitis A Antibody IgG 0.33 S/CO (0.00-0.99); ~Hepatitis A Antibody IgM Nonreactive (Nonreactive)
[2023-04-26 09:08] LABS: HBS Num1 0.53 mIU/mL (0-7.99); HBc Num1 0.08 S/CO (0.00-0.79); HBsAGNum1 0.35 S/CO (0.00-0.99); HIV AB/AG Nonreactive (Nonreactive); HIV Num 1 0.04 S/CO (0.00-0.99); Hepatitis B Core Antibody Nonreactive (Nonreactive); Hepatitis B Surface Antigen Negative (Negative); ~HepC Num1 0.04 S/CO (0.00-0.79); ~Hepatitis B Surface Antibody NONREACTIVE (Nonreactive); ~Hepatitis C Antibody Nonreactive (Nonreactive)
[2023-04-26 09:37] LABS: Herpes Simplex Type 1 IgG 3.68 index; Herpes Simplex Type 2 IgG <0.90 index
[2023-04-26 13:23] LABS: Transglutaminase IgA <1.0 U/mL
[2023-04-26 17:17] LABS: Alpha 1 Anti-trypsin 191 mg/dL (83-199); Ceruloplasmin 31 mg/dL (18-53); Immunoglobulin A 370 mg/dL (47-310); Immunoglobulin G 1192 mg/dL (600-1640)
[2023-04-26 18:04] LABS: A. Phagocytphilium DNA,RT-PCR NOT DETECTED (NOT DETECTED); Babesia Microti DNA, RT-PCR NOT DETECTED (NOT DETECTED); Borrelia Miyamotoi,DNA RT-PCR NOT DETECTED (NOT DETECTED); E.Chaffeensis DNA RT-PCR NOT DETECTED (NOT DETECTED); Lyme(Borrelia ssp)DNA RT-PCR NOT DETECTED (NOT DETECTED)
[2023-05-01 12:18] LABS: Liver Kidney Microsomal Ab <=20.0 U (<=20.0)
[2023-05-02 20:04] LABS: Hepatitis Delta Antibody NEGATIVE
== END 2023-04-25 11:26 | disposition home or self-care (01) ==
LOC: HO.LAB 11:25
PROVIDERS: PCP Internal Medicine; Visit Provider Internal Medicine
DX: Z00.00 Encounter for general adult medical examination without abnormal findings (principal); R30.0 Dysuria; R79.89 Other specified abnormal findings of blood chemistry; R17 Unspecified jaundice; B17.9 Acute viral hepatitis, unspecified
CPT/HCPCS: 80076; 81003; 82103; 82390; 82784; 85610; 86364; 86376; 86692; 86695; 86696; 86704; 86706; 86708; 86709; 86787; 86790; 86803; 87340; 87389; 87468; 87469; 87478; 87484; 87798; 99212

== ENCOUNTER 2023-04-25 11:25 | Outpatient (AMB) | payer OTHER, SELFPAY ==
--- NOTE | 2023-04-25 11:36 | MHC.OFFVIS ---
Intake Vital Signs 04/25/23 11:39 Height 5 ft 1 in Weight 205 lb 0.478 oz BMI 38.7 BP 114/69 Blood Pressure Location Lt brachial Position Sitting Pulse 80 Intake Visit Reasons: Unspecified jaundice Intake Note: Jonatan presents in the office as a new patient for jaundice. CC: She states that she went to the ED 04/11 and admitted for Jaundice. They did all the tests. She states that she has a gall stone and they wanted to remove her gall bladder. She was very yellow. They discharged her because Dr Fraser ordered tests from the ED. Her PCP is not sure what is going on and the liver tests all came back yesterday. States that her color is coming back but still a little yellow. She has no pains in her abdomen so she is not sure what she should do moving forward. Wireless Sales Associate Required: No Allergies No Known Allergies Allergy (Verified 04/25/23 11:39) HPI HPI Comments History of Present Illness Details This is a 42-year-old female who with no sick Ext past medical history who presented to the emergency room earlier this month for rapid onset of fatigue, nausea and jaundice. Onset was closely related to traveling to [place] as well as eating out. When she presented to the hospital, labs were noted to be significant for transaminases in the thousands and bilirubin up to 10.1 without any coagulopathy. Initial hepatitis serologies were negative. She then subsequently also had workup for autoimmune hepatitis as well as iron overload. 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 Most recent labs show decrease in LFTs with transaminases in x10UNL range and bili down to 2.9 PFSH Medical History Gallstones Obesity (BMI 30-39.9) Surgical History Hx of tubal ligation Family History Mother Family history of thyroid problem Father High blood pressure Family history of thyroid problem Social History Household Members: Spouse and Children Housing: House Do you presently have visiting nurse or other home services: No Alcohol intake: unknown Patient Tobacco Use Status: Never used Tobacco e-Cigarette/Vaping Use: Never Used Second Hand Smoke Exposure: No service: No Current occupational status: employed 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 Current occupational exposures/hazards: No Cognitive needs: No Hearing needs: No Vision needs: Yes Review of Systems Const All systems reviewed & are unremarkable except as noted in HPI and below Physical Exam Vital Signs: Last Vital Signs Pulse 80 04/25/23 11:39 BP 114/69 04/25/23 11:39 BMI result Body Mass Index 38.7 Gen appear: NAD HEENT: no obvious icterus appreciated, no cervical lymphadenopathy Chest: CTA CVS: Regular S1/S2 Abd: soft, nontender, nondistended, bowel sounds + Ext: no peripheral edema Neuro: A/Ox3, noted to move all extremities spontaneously Psych: interacting appropriately Assessment & Plan Assessment & Plan (1) Elevated LFTs: Code(s): R79.89 - Other specified abnormal findings of blood chemistry (2) Jaundice: Code(s): R17 - Unspecified jaundice (3) Acute hepatitis: Code(s): B17.9 - Acute viral hepatitis, unspecified Plan: Ddx for elevated LFTs to >100UNL of transaminases include infectious hep, ischemic hep, DILI, thrombosis (specifically budd chiari) and exacerbation of wilsons or AIH. Given risk factors including travel and eating out hx, infectious hep remains high on differential and therefore serology is being rechecked including Hep A, as well as additional serology for HEV. No HV thrombosis noted on US And CT scan. ischemic injury takes much shorter time to recuperate and therefore low on DDx. No hx of recent meds/drug including tylenol or NSAIDs and in any case INR remained normal. Similarly normal morphology on imaging also argues against an ongoing metabolic process such as Wilsons/AIH. HH seems to be a red easton as A. unlikely to be assoc with sudden onset of marked LFT elevation and B. H63D homozygosity not as pathogenic as the C282Y homozygosity. Plan: - Labs ordered as below - Recheck LFTs in a week - Liver bx requested - will proceed with this regardless of results of blood work for iron quantification/fibrosis assessment given HH 2/2 H63D/H63D variant. Follow up in 4 weeks. Orders: Orders Ceruloplasmin Today R79.89 - Other specified abnormal findings of blood chemistry Varicella IgG Antibody Today R79.89 - Other specified abnormal findings of blood chemistry Herpes Simplex Virus Ab IgG Today R79.89 - Other specified abnormal findings of blood chemistry Prothrombin Time INR Today R79.89 - Other specified abnormal findings of blood chemistry Liver Kidney Microsomal Ab Today R79.89 - Other specified abnormal findings of blood chemistry Transglutaminase IgA Today R79.89 - Other specified abnormal findings of blood chemistry Immunoglobulin A Today R79.89 - Other specified abnormal findings of blood chemistry Hepatitis B Core Antibody Today R79.89 - Other specified abnormal findings of blood chemistry Hepatitis B Surface Antigen Today R79.89 - Other specified abnormal findings of blood chemistry Hepatitis C Antibody Today R79.89 - Other specified abnormal findings of blood chemistry US biopsy liver Today R79.89 - Other specified abnormal findings of blood chemistry Alpha 1 Anti-trypsin Today R79.89 - Other specified abnormal findings of blood chemistry Liver Panel Today R79.89 - Other specified abnormal findings of blood chemistry Immunoglobulin G Today R79.89 - Other specified abnormal findings of blood chemistry Hepatitis A IgM Today R79.89 - Other specified abnormal findings of blood chemistry Hepatitis Delta Antibody Today R79.89 - Other specified abnormal findings of blood chemistry Other Ref Test - Misc Today R79.89 - Other specified abnormal findings of blood chemistry Hepatitis A IgG Today R79.89 - Other specified abnormal findings of blood chemistry Hepatitis B Surface Antibody Today R79.89 - Other specified abnormal findings of blood chemistry HIV Ab/Ag Today R79.89 - Other specified abnormal findings of blood chemistry Tick-borne Disease Molecular Today R79.89 - Other specified abnormal findings of blood chemistry Coding Level of Care Code Est Pt Level 5 (56668) Diagnoses Elevated LFTs R79. Jaundice R17 Acute hepatitis B17.9
[2023-04-25 11:39] VITALS: BP 114/69; PULSE 80; BMI 38.7
== END 2023-04-25 12:26 | disposition home or self-care (01) ==
PROVIDERS: PCP Internal Medicine; Visit Provider Internal Medicine
DX: R17 Unspecified jaundice (principal); R79.89 Other specified abnormal findings of blood chemistry; B17.9 Acute viral hepatitis, unspecified
CPT/HCPCS: 99215

== ENCOUNTER 2023-05-02 09:32 | Outpatient (REF) | payer OTHER, SELFPAY ==
[2023-05-02 10:53] LABS: Alanine Aminotransferase 208 U/L (0-31); Albumin Level 4.1 g/dL (3.5-5.0); Alkaline Phosphatase 110 U/L (39-117); Aspartate Amino Transferase 65 U/L (5-31); Bilirubin Direct 1.4 mg/dL (0.0-0.5); Bilirubin Total 2.6 mg/dL (0.0-1.0); Total Protein 7.3 g/dL (6.5-8.0)
[2023-05-02 12:53] LABS: INTERNATIONAL NORM RATIO 0.9 (0.9-1.1); Prothrombin Time 10.9 SEC (11.1-13.3)
== END 2023-05-02 09:33 | disposition home or self-care (01) ==
LOC: HO.LAB 09:32
PROVIDERS: PCP Internal Medicine; Visit Provider Internal Medicine
DX: R79.89 Other specified abnormal findings of blood chemistry (principal)
CPT/HCPCS: 36415; 80076; 85610

== ENCOUNTER 2023-05-03 06:36 | Day surgery (SDC) | payer OTHER, SELFPAY ==
--- NOTE | ~2023-05-03 | US_ITS ---
Liver biopsy INDICATIONS: Abnormal LFTs After informed and written consent was obtained an official timeout was performed immediately prior to the procedure. I was personally responsible for the administration of moderate sedation services, all requirements were followed, an independent trained observer was utilized. PROCEDURE: The skin was prepped and draped in the usual fashion in the subxiphoid region. 1% Xylocaine was used for local anesthetic. Under ultrasound guidance an 18-gauge core biopsy needle was placed in the left lobe of the liver. 4 core biopsy specimens were obtained. A gel foam slurry with placed in the tract and hemostasis obtained. US/US biopsy liver IMPRESSION: Ultrasound-guided biopsy of the left lobe of the liver
[2023-05-03 07:36] VITALS: BMI 39.3
[2023-05-03 09:15] VITALS: BP 123/83; PULSE 63; PULSE 68; RESP 18; TEMP 36.8; O2SAT 96
[2023-05-03] MEDS: Lidocaine HCl 1 % MPF 5 ML VIAL SUBCUT (09:18)
[2023-05-03 09:55] VITALS: BP 120/74; PULSE 80; RESP 18; O2SAT 96
[2023-05-03 10:42] VITALS: BP 129/79; PULSE 79; RESP 18; TEMP 36.8; O2SAT 96
== END 2023-05-03 10:15 | disposition home or self-care (01) ==
PROVIDERS: PCP Internal Medicine; Visit Provider Radiology Vascular & Interventional Radiology
DX: R79.89 Other specified abnormal findings of blood chemistry (principal); R17 Unspecified jaundice; B17.9 Acute viral hepatitis, unspecified; K80.20 Calculus of gallbladder without cholecystitis without obstruction; E66.9 Obesity, unspecified; Z68.38 Body mass index [BMI] 38.0-38.9, adult; Z98.51 Tubal ligation status
CPT/HCPCS: 47000; 76942; 88307; 88313; 99152; J2250; J3010

== ENCOUNTER → 2023-05-03 08:17 | Outpatient (BNV) | payer OTHER, SELFPAY | PROVIDERS: PCP Internal Medicine; Visit Provider Radiology Vascular & Interventional Radiology | DX: R74.01 Elevation of levels of liver transaminase levels (principal) | CPT/HCPCS: 47000; 76942 ==

== ENCOUNTER 2023-05-24 08:39 | Outpatient (REF) | payer OTHER, SELFPAY ==
[2023-05-24 10:00] LABS: Alanine Aminotransferase 32 U/L (0-31); Albumin Level 4.1 g/dL (3.5-5.0); Alkaline Phosphatase 69 U/L (39-117); Aspartate Amino Transferase 20 U/L (5-31); Bilirubin Direct 0.6 mg/dL (0.0-0.5); Bilirubin Total 1.6 mg/dL (0.0-1.0); Total Protein 7.1 g/dL (6.5-8.0)
== END 2023-05-24 08:40 | disposition home or self-care (01) ==
LOC: HO.LAB 08:39
PROVIDERS: PCP Internal Medicine; Visit Provider Internal Medicine
DX: R79.89 Other specified abnormal findings of blood chemistry (principal)
CPT/HCPCS: 36415; 80076

== ENCOUNTER 2023-06-19 12:51 | Outpatient (REF) | payer OTHER, SELFPAY ==
[2023-06-19 13:49] LABS: INTERNATIONAL NORM RATIO 0.9 (0.9-1.1); Prothrombin Time 11.4 SEC (11.1-13.3)
[2023-06-19 14:43] LABS: Alanine Aminotransferase 17 U/L (0-31); Albumin Level 4.3 g/dL (3.5-5.0); Alkaline Phosphatase 69 U/L (39-117); Aspartate Amino Transferase 19 U/L (5-31); Bilirubin Direct 0.5 mg/dL (0.0-0.5); Bilirubin Total 1.6 mg/dL (0.0-1.0); Total Protein 7.7 g/dL (6.5-8.0)
== END 2023-06-19 12:52 | disposition home or self-care (01) ==
LOC: HO.LAB 12:51
PROVIDERS: PCP Internal Medicine; Visit Provider Internal Medicine
DX: R79.89 Other specified abnormal findings of blood chemistry (principal)
CPT/HCPCS: 36415; 80076; 85610

== ENCOUNTER 2023-08-13 13:03 | Outpatient (AMB) | payer OTHER, SELFPAY ==
--- NOTE | 2023-08-13 13:06 | MHC.PC.OV ---
Vital Signs 08/13/23 13:07 Height 5 ft 1 in Weight 214 lb BMI 40.4 BP 120/82 Blood Pressure Location Lt brachial Position Sitting Pulse 79 Pulse Source Pulse Oximeter Pulse Oximetry (%) 97 Oxygen Delivery Method Room Air Intake Visit Reasons: jaundice [employer]ward[employer] Car Required: No Accompanied by: Self / Same As Patient Allergies No Known Allergies Allergy (Verified 02/20/24 17:17) Medication List - Last Reconciled 02/20/24 by Deacon Murphy MD No Known Home Meds Tobacco use date assessed: 08/13/23 Dental Screening Dental Screen Date: 08/13/23 Did you have a dental visit in the last 12 months?: Yes Did you have a dental problem in the last 6 months where you did not have access to dental care?: No Was dental information given to patient?: Patient has dentist HPI jaundice HPI Details Patient comes in today for follow up of her jaundice that occurred a few months ago in April 2023 At the time, it was thought that she may have passed a CBD stone and as she had very little abdominal symptoms at the time, surgery was not indicated She underwent further work ups for her jaundice but so far all of her tests were unrevealing except for 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 She was referred to gastroenterology for further evaluation and even underwent a liver biopsy, which came back normal - pathology only showed findings consistent with recent parenchymal injury and regeneration Patient states that her jaundice gradually cleared up and she's had no further recurrence of jaundice or any other GI symptoms since States that she currently feels okay She denies any headaches or dizziness Denies any chest pains, no SOB No nausea/vomiting, no abdominal pain No change in bowel habits noted [facility] Medical History (Updated 02/20/24 @ 18:59 by Deacon Murphy MD) Hemochromatosis Gallstones Obesity (BMI 30-39.9) Surgical History Hx of tubal ligation Family History Mother Family history of thyroid problem Father High blood pressure Family history of thyroid problem Social History Household Members: Spouse and Children Housing: House Do you presently have visiting nurse or other home services: No Alcohol intake: unknown Patient Tobacco Use Status: Never used Tobacco e-Cigarette/Vaping Use: Never Used Second Hand Smoke Exposure: No service: No Current occupational status: employed 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 1. Little interest or pleasure in doing things: not at all 2. Feeling down, depressed, or hopeless: not at all 3. Trouble falling or staying asleep, or sleeping too much: not at all 4. Feeling tired or having little energy: not at all 5. Poor appetite or overeating: not at all 6. Feeling bad about yourself - or that you are a failure or have let yourself or your family down: not at all 7. Trouble concentrating on things, such as reading the newspaper or watching television: not at all 8. Moving or speaking so slowly that other people could have noticed. Or the opposite - being so fidgety or restless that you have been moving around a lot more than usual: not at all 9. Thoughts that you would be better off or of hurting yourself in some way: not at all Total score: 0 Depression Screening Interpretation: Negative Depression Screening Done: Yes 37982 - PHQ-9 Billing: Yes Source: Developed by Drs. Bogdan Pool, Cat Flores, Mykel Mariano and colleagues, with an educational kelby from [employer]. Thrive Questionnaire Date Thrive assessed: 08/13/23 I am a: Patient What is your living situation today?: I have a steady place to live Within the past 12 months, did the food you bought not last and you didn't have the money to get more?: Never true Within the past 12 months, did you worry whether your food would run out before you got money to buy more?: Never true Do you have trouble paying for medicines?: No Do you have trouble getting transportation to medical appointments?: No Do you have trouble paying your heating and electricity bill?: No Do you have trouble taking care of your child, family member or friend?: No Do you have trouble with day-to-day activities such as bathing, preparing meals, shopping, managing finances, etc.?: No Are you currently unemployed and looking for a job?: No Are you interested in more education?: No Please select the resources that you would like help with: None Currently or been in a relationship where the following occur: no concerns reported AUDIT C Alcohol Use Questionnaire (AUDIT-C) 1. How often do you have a drink containing alcohol?: Monthly or less 2. How many drinks containing alcohol do you have on a typical day when you are drinking?: 1 or 2 3. How often do you have six or more drinks on one occasion?: Never Total Score: 1 Score Reviewed/Action Taken: Yes KIRA-7 AMB Questionnaire KIRA-7 Date KIRA - 7 assessed: 08/13/23 Feeling nervous, anxious, or on edge: 0 = Not at all Not being able to stop or control worryin = Not at all Worrying too much about different things: 0 = Not at all Trouble relaxin = Not at all Being so restless that it is hard to sit still: 0 = Not at all Becoming easily annoyed or irritable: 0 = Not at all Feeling afraid as if something awful might happen: 0 = Not at all Total KIRA-7 score (0-4 normal; 5-9 mild; 10-14 moderate; 15-21 severe): 0 Source: Developed by Drs. Bogdan Pool, Cat Flores, Mykel Mariano and colleagues, with an educational kelby from [employer]. Review of Systems Const Denies chills, Denies fatigue, Denies fever(s) and Denies headache(s) ENT Denies dysphagia, Denies dizziness, Denies otalgia, Denies headache(s), Denies neck pain, Denies odynophagia and Denies sore throat Card Denies chest pain, Denies palpitations and Denies dyspnea Resp Denies cough and Denies dyspnea GI Denies abdominal pain, Denies constipation, Denies dysphagia, Denies heartburn, Denies diarrhea, Denies nausea, Denies odynophagia and Denies vomiting Denies difficulty voiding, Denies nocturia, Denies dysuria and Denies urinary urgency Musc Denies back pain and Denies neck pain Skin/Breast Denies rash Neuro Denies dizziness and Denies headache(s) Endo Denies fatigue and Denies palpitations Physical exam (Primary Care) Vital Signs: Last Vital Signs Pulse 79 08/13/23 13:07 BP 120/82 08/13/23 13:07 Pulse Ox 97 08/13/23 13:07 Oxygen Delivery Method Room Air 08/13/23 13:07 BMI result Body Mass Index 40.4 Tobacco/Smoking Status: Tobacco use Status Tobacco use date assessed 08/13/23 08/13/23 13:13 Patient Tobacco Use Status Never used Tobacco 08/13/23 13:13 e-Cigarette/Vaping Use Never Used 08/13/23 13:13 PHQ-9: PHQ-9 Score PHQ-9: Total score 0 08/13/23 13:59 Depression Screening Interpretation: Negative Thrive Assessment: Date of Thrive Assessment Date Thrive assessed 08/13/23 08/13/23 13:13 Currently or been in a relationship where the following occur: no concerns reported Const General: no acute distress and alert HENMT Throat: Yes posterior oropharynx normal and Yes tonsils normal (no TP congestion) Neck Neck: Yes no lymphadenopathy and Yes supple Thyroid: Thyroid normal Resp Auscultation: clear to auscultation bilaterally, no rales and no wheezes Cardio Rate: regular rate Rhythm: regular rhythm Heart sounds: no murmurs GI Palpation (GI): Soft to palpation and nontender Auscultation: normal bowel sounds General: Yes no CVA tenderness Back/Spine/Pelvis Back: no CVA tenderness Thoracic/Lumbar Spine: No lumbar spinal tenderness Skin Rashes: no rashes Extrem General: Yes no clubbing, cyanosis or edema Assessment and Plan Assessment & Plan (1) Jaundice: Code(s): R17 - Unspecified jaundice Plan: Resolved - was likely due to acute hepatic injury, presumably from a viral infection but all of her work ups for hepatitis came out negative Liver biopsy done in April 2023 came back normal - pathology only showed findings consistent with recent parenchymal injury and regeneration Patient states that her jaundice has not recurred since and she is currently completely asymptomatic (2) Elevated LFTs: Code(s): R79.89 - Other specified abnormal findings of blood chemistry Plan: Her LFTs were normal on her most recent labs in June 2023 - were most likely due to hepatosteatosis and her recent acute hepatic injury that led to her jaundice Will send her for some labs LOCO for follow up (3) Hemochromatosis: Comment: hemochromatosis analysis is positive for homozygous H63D variant Code(s): E83.119 - Hemochromatosis, unspecified Qualifiers: Hemochromatosis type: other hemochromatosis Qualified Code(s): E83.118 - Other hemochromatosis Plan: Hemochromatosis analysis done a few months ago came back positive for homozygous H63D variant. Plan Follow up in 4 months Orders: Orders Ferritin 08/16/23 R79.89 - Other specified abnormal findings of blood chemistry Lactate Dehydrogenase 08/16/23 E83.52 - Hypercalcemia Comprehensive Met. Panel 08/16/23 R79.89 - Other specified abnormal findings of blood chemistry Coding Level of Care Code Est Pt Level 3 (30832) Diagnoses Jaundice R17 Elevated LFTs R79.89 Other hemochromatosis E83.118 Hemochromatosis type: other hemochromatosis
[2023-08-13 13:07] VITALS: BP 120/82; PULSE 79; O2SAT 97; BMI 40.4
== END 2023-08-13 13:59 | disposition home or self-care (01) ==
PROVIDERS: PCP Internal Medicine; Visit Provider Internal Medicine
DX: R17 Unspecified jaundice (principal); R79.89 Other specified abnormal findings of blood chemistry; E83.118 Other hemochromatosis
CPT/HCPCS: 99499

== ENCOUNTER 2023-08-16 10:00 | Outpatient (REF) | payer OTHER, SELFPAY ==
[2023-08-16 11:16] LABS: Alanine Aminotransferase 99 U/L (0-31); Albumin Level 4.4 g/dL (3.5-5.0); Alkaline Phosphatase 64 U/L (39-117); Anion Gap 11 (12-20); Aspartate Amino Transferase 51 U/L (5-31); Bilirubin Total 1.4 mg/dL (0.0-1.0); Blood Urea Nitrogen 10 mg/dL (9-16); Calcium 9.5 mg/dL (8.4-10.2); Carbon Dioxide 24 mmol/L (22-29); Chloride 106 mmol/L (96-108); Estimated Glomerular Filt Rate > 60; Glucose Random 98 mg/dL (60-115); Lactate Dehydrogenase 218 U/L (122-220); Potassium 4.1 mmol/L (3.3-5.1); Sodium 137 mmol/L (135-145); Total Protein 7.6 g/dL (6.5-8.0)
[2023-08-16 11:23] LABS: Ferritin 45 ng/mL (10-250)
== END 2023-08-16 10:01 | disposition home or self-care (01) ==
LOC: HO.LAB 10:00
PROVIDERS: PCP Internal Medicine; Visit Provider Internal Medicine
DX: R79.89 Other specified abnormal findings of blood chemistry (principal); E83.52 Hypercalcemia
CPT/HCPCS: 36415; 80053; 82728; 83615

== ENCOUNTER 2024-02-20 16:39 | Outpatient (AMB) | payer OTHER, SELFPAY ==
[2024-02-20 16:40] VITALS: BP 118/72; PULSE 76; O2SAT 99; BMI 39.5
--- NOTE | 2024-02-20 16:40 | A.OFFPC_ITS ---
Vital Signs 02/20/24 16:40 Height 5 ft 1 in Weight 209 lb 0.6 oz BMI 39.5 BP 118/72 Blood Pressure Location Lt brachial Position Sitting Pulse 76 Pulse Source Pulse Oximeter Pulse Oximetry (%) 99 Oxygen Delivery Method Room Air Intake Visit Reasons: 4M f/u [employer] Required: No Allergies No Known Allergies Allergy (Verified 02/20/24 17:17) Medication List - Last Reconciled 02/20/24 by Deacon Murphy MD No Known Home Meds Tobacco use date assessed: 08/13/23 Dental Screening Dental Screen Date: 08/13/23 HPI 4M f/u HPI Details Patient comes in today for her follow up visit States that she feels okay She denies any headaches or dizziness Denies any chest pains, no SOB No nausea/vomiting, no abdominal pain No change in bowel habits noted She's had no further recurrence of the jaundice that she had back in April 2023 She is also currently inquiring if she would be a candidate for the injectable weight loss meds that are now available in the market like Mounjaro - states that her [id number] has been on it for a few months now and has lost a lot of weight as a result but she states that her [id number] also has borderline diabetes States that she will be getting her annual pap smear/gynecology exam and annual mammogram done at [facility] sometime later this year pap and mammo at [facility] due this year [facility] Medical History (Updated 02/20/24 @ 19:13 by Deacon Murphy MD) Mixed hyperlipidemia Hemochromatosis Gallstones Obesity (BMI 30-39.9) Surgical History Hx of tubal ligation Family History Mother Family history of thyroid problem Father High blood pressure Family history of thyroid problem Social History Household Members: Spouse and Children Housing: House Do you presently have visiting nurse or other home services: No Alcohol intake: unknown Patient Tobacco Use Status: Never used Tobacco e-Cigarette/Vaping Use: Never Used Second Hand Smoke Exposure: No service: No Current occupational status: employed 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 How often do you have a drink containing alcohol?: Monthly or less 2. How many drinks containing alcohol do you have on a typical day when you are drinking?: 1 or 2 3. How often do you have six or more drinks on one occasion?: Never Total Score: 1 Score Reviewed/Action Taken: Yes KIRA-7 AMB Questionnaire KIRA-7 Date KIRA - 7 assessed: 08/13/23 Source: Developed by Drs. Bogdan Pool, Cat Flores, Mykel Mariano and colleagues, with an educational kelby from [employer]. Review of Systems Const Denies chills, Denies fatigue, Denies fever(s) and Denies headache(s) ENT Denies dysphagia, Denies dizziness, Denies otalgia, Denies headache(s), Denies neck pain, Denies odynophagia and Denies sore throat Card Denies chest pain, Denies palpitations and Denies dyspnea Resp Denies cough and Denies dyspnea GI Denies abdominal pain, Denies constipation, Denies dysphagia, Denies heartburn, Denies diarrhea, Denies nausea, Denies odynophagia and Denies vomiting Denies difficulty voiding, Denies nocturia, Denies dysuria and Denies urinary urgency Musc Denies back pain and Denies neck pain Skin/Breast Denies rash Neuro Denies dizziness and Denies headache(s) Endo Denies fatigue and Denies palpitations Physical exam (Primary Care) Vital Signs: Last Vital Signs Pulse 76 02/20/24 16:40 BP 118/72 02/20/24 16:40 Pulse Ox 99 02/20/24 16:40 Oxygen Delivery Method Room Air 02/20/24 16:40 BMI result Body Mass Index 39.5 Tobacco/Smoking Status: Tobacco use Status Tobacco use date assessed 08/13/23 02/20/24 16:40 Patient Tobacco Use Status Never used Tobacco 02/20/24 16:40 e-Cigarette/Vaping Use Never Used 02/20/24 16:40 Thrive Assessment: Date of Thrive Assessment Date Thrive assessed 08/13/23 02/20/24 16:40 Const General: no acute distress and alert HENMT Throat: Yes posterior oropharynx normal and Yes tonsils normal (no TP congestion) Neck Neck: Yes no lymphadenopathy and Yes supple Thyroid: Thyroid normal Resp Auscultation: clear to auscultation bilaterally, no rales and no wheezes Cardio Rate: regular rate Rhythm: regular rhythm Heart sounds: no murmurs GI Palpation (GI): Soft to palpation and nontender Auscultation: normal bowel sounds General: Yes no CVA tenderness Back/Spine/Pelvis Back: no CVA tenderness Thoracic/Lumbar Spine: No lumbar spinal tenderness Skin Rashes: no rashes Extrem General: Yes no clubbing, cyanosis or edema Results Reviewed Results Reviewed: Laboratory Tests 08/16/23 10:19 Sodium 137 Potassium 4.1 Creatinine 0.81 Estimated GFR > 60 Random Glucose 98 Calcium 9.5 Ferritin 45 Total Bilirubin 1.4 H AST 51 H ALT 99 H Alkaline Phosphatase 64 Lactate Dehydrogenase 218 Total Protein 7.6 Albumin 4.4 Assessment and Plan Assessment & Plan (1) Elevated LFTs: Code(s): R79.89 - Other specified abnormal findings of blood chemistry Plan: Her LFTs were again elevated on her most recent labs done in August 2023 - were most likely due to hepatosteatosis Have advised patient again that losing weight will help get her LFTs back to normal Will recheck her labs and LFTs in 3 to 4 months for follow up (2) Hemochromatosis: Comment: hemochromatosis analysis is positive for homozygous H63D variant Code(s): E83.119 - Hemochromatosis, unspecified Qualifiers: Hemochromatosis type: other hemochromatosis Qualified Code(s): E83.118 - Other hemochromatosis Plan: Hemochromatosis analysis done a few months ago came back positive for homozygous H63D variant. (3) Mixed hyperlipidemia: Code(s): E78.2 - Mixed hyperlipidemia Plan: Reinforced low cholesterol diet Her serum TG level was elevated when last checked in April 2023 but her LDL cholesterol was within normal range Will recheck her labs and fasting lipids in May 2024 for follow up (4) Obesity (BMI 30-39.9): Code(s): E66.9 - Obesity, unspecified Plan: Reinforced diet/exercise as tolerated/lose weight She is currently inquiring about the possibility of taking some of the GLP-1s that are out in the market to help her lose weight Have advised her to get her labs done in May 2024 and we can revisit this discussion again when she comes in for her annual physical in a few months Have advised her though that as she recently tested positive for hemochromatosis, patients with hemochromatosis may be at a slightly higher risk of developing acute pancreatitis from the GLP-1 agonists Plan To return as scheduled in May 2024 for her annual physical examination Orders: Orders Complete Blood Count Auto Diff 05/06/24 D64.9 - Anemia, unspecified, Z00.00 - Encounter for general adult medical examination without abnormal findings Comprehensive [place]. Panel Fast 05/06/24 E78.00 - Pure hypercholesterolemia, unspecified, Z00.00 - Encounter for general adult medical examination without abnormal findings TSH reflex Free T4 05/06/24 E78.00 - Pure hypercholesterolemia, unspecified, Z00.00 - Encounter for general adult medical examination without abnormal findings UA CC w/rflx Micro + Cult 05/06/24 R30.0 - Dysuria, Z00.00 - Encounter for general adult medical examination without abnormal findings Hemoglobin A1c 05/06/24 R73.9 - Hyperglycemia, unspecified, Z00.00 - Encounter for general adult medical examination without abnormal findings Liver Fibrosis Pnl 05/06/24 R79.89 - Other specified abnormal findings of blood chemistry Lipid Panel 05/06/24 E78.00 - Pure hypercholesterolemia, unspecified, Z00.00 - Encounter for general adult medical examination without abnormal findings Vitamin D 25-OH Total 05/06/24 E55.9 - Vitamin D deficiency, unspecified, Z00.00 - Encounter for general adult medical examination without abnormal findings Ferritin 05/06/24 E83.118 - Other hemochromatosis Coding Level of Care Code Est Pt Level 4 (89305) Diagnoses Elevated LFTs R79.89 Other hemochromatosis E83.118 Hemochromatosis type: other hemochromatosis Mixed hyperlipidemia E78.2 Obesity (BMI 30-39.9) E66.9
== END 2024-02-20 17:26 | disposition home or self-care (01) ==
PROVIDERS: PCP Internal Medicine; Visit Provider Internal Medicine
DX: R79.89 Other specified abnormal findings of blood chemistry (principal); E83.118 Other hemochromatosis; E66.9 Obesity, unspecified; Z68.35 Body mass index [BMI] 35.0-35.9, adult; E78.2 Mixed hyperlipidemia
CPT/HCPCS: 99214

== ENCOUNTER 2024-03-26 14:37 | Outpatient (AMB) | payer OTHER, SELFPAY ==
--- NOTE | 2024-03-26 14:38 | MHC.PC.OV ---
Intake Visit Reasons: COVID pos Allergies No Known Allergies Allergy (Verified 03/26/24 14:38) Medication List - Last Reconciled 03/26/24 by Jason Fernandez MD nirmatrelvir-ritonavir 300 mg (150 mg x 2)-100 mg (Paxlovid) take TWO 150 mg tablets of nirmatrelvir with ONE 100 mg tablet of ritonavir twice daily for 5 days PO Tobacco use date assessed: 08/13/23 Dental Screening Dental Screen Date: 08/13/23 HPI COVID pos HPI Details 43-year-old obese female with asthma hypercholesterolemia and hemochromatosis coming in through Telehealth for an acute problem. sunday fever congested- wants antiviral. Patient was asking for Tamiflu but discussed with the patient that Tamiflu is for flu and not for COVID-19 infection. Patient also questions about going back to work. Discussed with the patient that the guidelines for COVID-19 infection has changed and that whenever the patient is feeling better they can go back to work but masking up is recommended. [facility] Medical History (Updated 03/26/24 @ 14:54 by Jason Fernandez MD) Mixed hyperlipidemia Hemochromatosis Gallstones Obesity (BMI 30-39.9) Surgical History Hx of tubal ligation Family History Mother Family history of thyroid problem Father High blood pressure Family history of thyroid problem Social History Household Members: Spouse and Children Housing: House Do you presently have visiting nurse or other home services: No Alcohol intake: unknown Patient Tobacco Use Status: Never used Tobacco Tobacco use type: Cigarette e-Cigarette/Vaping Use: Never Used Second Hand Smoke Exposure: No service: No Current occupational status: employed 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 1. Little interest or pleasure in doing things: not at all 2. Feeling down, depressed, or hopeless: not at all 3. Trouble falling or staying asleep, or sleeping too much: not at all 4. Feeling tired or having little energy: not at all 5. Poor appetite or overeating: not at all 6. Feeling bad about yourself - or that you are a failure or have let yourself or your family down: not at all 7. Trouble concentrating on things, such as reading the newspaper or watching television: not at all 8. Moving or speaking so slowly that other people could have noticed. Or the opposite - being so fidgety or restless that you have been moving around a lot more than usual: not at all 9. Thoughts that you would be better off or of hurting yourself in some way: not at all Total score: 0 Depression Screening Interpretation: Negative Depression Screening Done: Yes 39375 - PHQ-9 Billing: Yes Source: Developed by Drs. Bogdan Pool, Cat Flores, Mykel Mariano and colleagues, with an educational kelby from [employer]. Thrive Questionnaire Date Thrive assessed: 08/13/23 AUDIT C Alcohol Use Questionnaire (AUDIT-C) 1. How often do you have a drink containing alcohol?: Monthly or less 2. How many drinks containing alcohol do you have on a typical day when you are drinking?: 1 or 2 3. How often do you have six or more drinks on one occasion?: Never Total Score: 1 Score Reviewed/Action Taken: Yes KIRA-7 AMB Questionnaire KIRA-7 Date KIRA - 7 assessed: 08/13/23 Source: Developed by Drs. Bogdan Pool, Cat Flores, Mykel Mariano and colleagues, with an educational kelby from [employer]. Physical exam (Primary Care) Tobacco/Smoking Status: Tobacco use Status Tobacco use date assessed 08/13/23 03/26/24 14:39 Patient Tobacco Use Status Never used Tobacco 03/26/24 14:39 Tobacco use type Cigarette 03/26/24 14:39 e-Cigarette/Vaping Use Never Used 03/26/24 14:39 PHQ-9: PHQ-9 Score PHQ-9: Total score 0 03/26/24 14:39 Depression Screening Interpretation: Negative Thrive Assessment: Date of Thrive Assessment Date Thrive assessed 08/13/23 03/26/24 14:39 Telehealth Telehealth Telehealth Platform: Telephone Location of provider rendering services: practice address Location of patient: address on file Patient Identification confirmed using: Name, : Yes Telehealth method: video (Android) Patient verbally consented to treatment: Yes Patient verbally consented to billing insurance company: Yes Patient informed of any privacy concerns related to visit: Yes Minutes spent on Phone/Video with Pt.: 15 Assessment and Plan Assessment & Plan (1) COVID-19 virus infection: Comment: 03/23/2024 Code(s): U07.1 - COVID-19 Plan: For the sore throat can take Cepacol lozenges, discussed about Delsym to help with dry cough so she can rest and advised to increase oral fluids. Patient also can take Tylenol for chills and fever. . Advised to increase oral fluids. Medications: New nirmatrelvir-ritonavir 300 mg (150 mg x 2)-100 mg (Paxlovid) take TWO 150 mg tablets of nirmatrelvir with ONE 100 mg tablet of ritonavir twice daily for 5 days PO 30 ea 0RF U07.1 - COVID-19 Coding Level of Care Code Tele Est Pt Level 3 (33845) Diagnoses COVID-19 virus infection U07.1
== END 2024-03-26 15:39 | disposition home or self-care (01) ==
LOC: HO.HMGH 14:37
PROVIDERS: PCP Internal Medicine; Visit Provider Internal Medicine
DX: U07.1 COVID-19 (principal)
CPT/HCPCS: 99213

== ENCOUNTER 2024-05-13 07:32 | Outpatient (REF) | payer OTHER, SELFPAY ==
[2024-05-13 07:48] LABS: MANUAL DIFF FLAG NO
[2024-05-13 08:03] LABS: Basophils Percent Auto 0.6 % (0-2); Eosinophils Absolute Auto 0.1 X10*3/uL (0.0-0.4); Eosinophils Percent Auto 1.7 % (0-4); Hematocrit 38.5 % (37.0-47.0); Hemoglobin 13.3 g/dl (12.0-16.0); Imm Gran Abs Auto 0.03 X10*3/uL (0.00-0.03); Imm Gran Pct Auto 0.4 % (0.0-0.4); Lymphocytes Absolute Auto 1.8 X10*3/uL (1.2-4.9); Lymphocytes Percent Auto 25.5 % (20-40); Mean Corpuscular HGB Conc 34.5 g/dl (31.0-35.0); Mean Corpuscular Hemoglobin 31.5 pg (27.0-33.0); Mean Corpuscular Volume 91.2 fL (80.0-98.0); Monocytes Absolute Auto 0.6 X10*3/uL (0.1-1.2); Monocytes Percent Auto 8.2 % (2-11); Neutrophils Absolute Auto 4.5 x10*3/uL (2.0-8.3); Neutrophils Percent Auto 63.6 % (45-73); Platelet Count 329 X10*3/uL (160-400); Red Blood Count 4.22 X10*6/uL (4.20-5.50); Red Cell Distribution Width 12.5 % (11.0-16.0); White Blood Count 7.1 X10*3/uL (4.8-10.8)
[2024-05-13 08:07] LABS: Appearance Urine Clear; Color Urine Yellow; Glucose Urine UA Negative (Negative); Leukocyte Esterase Urine Negative (Negative); Nitrite Urine Negative (Negative); Specific Gravity - Urine 1.025 (1.005-1.025); Urine Blood Negative (Negative); Urine Ketones Negative (Negative); Urine Protein Negative (Neg-Trace)
[2024-05-13 09:16] LABS: Alanine Aminotransferase 14 U/L (0-31); Albumin Level 4.1 g/dL (3.5-5.0); Alkaline Phosphatase 63 U/L (39-117); Anion Gap 12 (12-20); Aspartate Amino Transferase 13 U/L (5-31); Bilirubin Total 1.3 mg/dL (0.0-1.0); Blood Urea Nitrogen 12 mg/dL (9-16); Calcium 9.1 mg/dL (8.4-10.2); Carbon Dioxide 24 mmol/L (22-29); Chloride 108 mmol/L (96-108); Cholesterol 170 mg/dL (<200); Estimated Glomerular Filt Rate > 60; Glucose Fasting 92 mg/dL (60-99); HDL Cholesterol 43 mg/dL (>40); LDL Cholesterol Calculated 105 mg/dL (<100); Sodium 140 mmol/L (135-145); Triglycerides 111 mg/dL (<150)
[2024-05-13 09:25] LABS: Ferritin 41 ng/mL (10-250); TSH reflex Free T4 1.59 uIU/mL (0.32-4.0); Vitamin D 25-OH Total 35.2 ng/mL (>30)
[2024-05-13 09:27] LABS: Estimated Average Glucose 105 mg/dL; Hemoglobin A1C 115.2984 umol/L; Hemoglobin A1c % 5.3 % (<6.0)
[2024-05-21 00:48] LABS: FIB-ALT 12 U/L (6-29); FIB-Alpha-2-Macroglobulin 128 mg/dL (106-279); FIB-Apolipoprotein A1 140 mg/dL (101-198); FIB-GGT 16 U/L (3-55); FIB-Haptoglobin 204 mg/dL (43-212); FIB-Total Bilirubin 1.2 mg/dL (0.2-1.2); Liver Fibrosis Score 0.08; Liver Fibrosis Stage F0; Nec Inflam Act Grade A0; Nec Inflam Act Score 0.03; Reference ID 5154647
== END 2024-05-13 07:33 | disposition home or self-care (01) ==
LOC: HO.LAB 07:32
PROVIDERS: PCP Internal Medicine; Visit Provider Internal Medicine
DX: Z00.00 Encounter for general adult medical examination without abnormal findings (principal); E78.2 Mixed hyperlipidemia; E83.110 Hereditary hemochromatosis; R17 Unspecified jaundice; E66.9 Obesity, unspecified; D50.9 Iron deficiency anemia, unspecified; R73.9 Hyperglycemia, unspecified; R79.89 Other specified abnormal findings of blood chemistry; R30.0 Dysuria; E55.9 Vitamin D deficiency, unspecified; Z28.21 Immunization not carried out because of patient refusal
CPT/HCPCS: 36415; 80053; 80061; 81003; 81596; 82306; 82728; 83036; 84443; 85025; 90471; 96127; 99396

== ENCOUNTER 2024-05-13 16:30 | Outpatient (AMB) | payer OTHER, SELFPAY ==
[2024-05-13 16:30] VITALS: BP 120/84; PULSE 85; O2SAT 96; BMI 39.2
--- NOTE | 2024-05-13 16:30 | MHC.PC.OV ---
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: No Accompanied by: Self / Same As Patient Allergies No Known Allergies Allergy (Verified 05/14/24 05:41) Medication List - Last Reconciled 05/14/24 by Deacon Murphy MD No Known Home Meds Tobacco use date assessed: 05/13/24 Dental Screening Dental Screen Date: 05/13/24 Did you have a dental visit in the last 12 months?: Yes Did you have a dental problem in the last 6 months where you did not have access to dental care?: No Was dental information given to patient?: Patient has dentist HPI annual exam HPI Details Patient comes in today for her annual physical examination States that she feels okay Relates that she tested positive for COVID a couple of months ago and had increased cough and congestion then but the Paxlovid Rx that was called in for her helped a lot - states that she currently has no lingering effects from her recent bout with COVID Denies any headaches or dizziness Denies any chest pains, no SOB No nausea/vomiting, no abdominal pain No change in bowel habits noted She denies any acute urinary symptoms She had her follow up labs done yesterday - to discuss her results She just had her annual mammogram done at [facility] last month States that she is up-to-date with her annual gynecology exam and pap smear - 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 is also at [facility] Medical History (Updated 05/14/24 @ 06:16 by Deacon Murphy MD) Hereditary hemochromatosis Mixed hyperlipidemia Hemochromatosis Gallstones Obesity (BMI 30-39.9) Surgical History Hx of tubal ligation Family History Mother Family history of thyroid problem Father High blood pressure Family history of thyroid problem Social History Household Members: Spouse and Children Housing: House Do you presently have visiting nurse or other home services: No Alcohol intake: unknown Patient Tobacco Use Status: Never used Tobacco Tobacco use type: Cigarette e-Cigarette/Vaping Use: Never Used Second Hand Smoke Exposure: No service: No Current occupational status: employed 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 1. Little interest or pleasure in doing things: not at all 2. Feeling down, depressed, or hopeless: not at all 3. Trouble falling or staying asleep, or sleeping too much: not at all 4. Feeling tired or having little energy: not at all 5. Poor appetite or overeating: not at all 6. Feeling bad about yourself - or that you are a failure or have let yourself or your family down: not at all 7. Trouble concentrating on things, such as reading the newspaper or watching television: not at all 8. Moving or speaking so slowly that other people could have noticed. Or the opposite - being so fidgety or restless that you have been moving around a lot more than usual: not at all 9. Thoughts that you would be better off or of hurting yourself in some way: not at all Total score: 0 Depression Screening Interpretation: Negative Depression Screening Done: Yes 24326 - PHQ-9 Billing: Yes Source: Developed by Drs. Bogdan Pool, Cat Flores, Mykel Mariano and colleagues, with an educational kelby from [employer]. Thrive Questionnaire Date Thrive assessed: 05/13/24 I am a: Patient What is your living situation today?: I have a steady place to live Within the past 12 months, did the food you bought not last and you didn't have the money to get more?: Never true Within the past 12 months, did you worry whether your food would run out before you got money to buy more?: Never true Do you have trouble paying for medicines?: No Do you have trouble getting transportation to medical appointments?: No Do you have trouble paying your heating and electricity bill?: No Do you have trouble taking care of your child, family member or friend?: No Do you have trouble with day-to-day activities such as bathing, preparing meals, shopping, managing finances, etc.?: No Are you currently unemployed and looking for a job?: No Are you interested in more education?: No Please select the resources that you would like help with: None Currently or been in a relationship where the following occur: No concerns reported THRIVE Score: 0 AUDIT C Alcohol Use Questionnaire (AUDIT-C) 1. How often do you have a drink containing alcohol?: Monthly or less 2. How many drinks containing alcohol do you have on a typical day when you are drinking?: 1 or 2 3. How often do you have six or more drinks on one occasion?: Never Total Score: 1 Score Reviewed/Action Taken: Yes KIRA-7 AMB Questionnaire KIRA-7 Date KIRA - 7 assessed: 05/13/24 Feeling nervous, anxious, or on edge: 0 = Not at all Not being able to stop or control worryin = Not at all Worrying too much about different things: 0 = Not at all Trouble relaxin = Not at all Being so restless that it is hard to sit still: 0 = Not at all Becoming easily annoyed or irritable: 0 = Not at all Feeling afraid as if something awful might happen: 0 = Not at all Total KIRA-7 score (0-4 normal; 5-9 mild; 10-14 moderate; 15-21 severe): 0 Source: Developed by Drs. Bogdan Pool, Cat Flores, Mykel Mariano and colleagues, with an educational kelby from [employer]. Review of Systems Const Denies chills, Denies fatigue, Denies fever(s), Denies headache(s) and Denies malaise Eyes Denies blurry vision, Denies change in vision, Denies irritation and Denies itchy eyes ENT Denies dysphagia, Denies dizziness, Denies otalgia, Denies headache(s), Denies nasal congestion, Denies neck pain, Denies odynophagia, Denies sinus pain and Denies sore throat Card Denies chest pain, Denies rapid heart rate, Denies irregular heart rhythm, Denies palpitations and Denies dyspnea Resp Denies chest congestion, Denies cough, Denies dyspnea and Denies wheezing GI Denies abdominal pain, Denies bloating, Denies constipation, Denies dysphagia, Denies heartburn, Denies diarrhea, Denies nausea, Denies odynophagia and Denies vomiting Denies hematuria, Denies urinary frequency, Denies dysuria, Denies urinary incontinence and Denies urinary urgency Musc Denies back pain, Denies arthralgias, Denies joint swelling, Denies muscle weakness and Denies neck pain Skin/Breast Denies breast pain, Denies breast mass, Denies change in pigmentation, Denies lesions, Denies rash and Denies unusual bruising Neuro Denies dizziness, Denies headache(s) and Denies paresthesias Psych Denies anxiety and Denies depression Endo Denies fatigue and Denies palpitations Vinayak/Lymph Denies easy bruising Aller/Immun Denies itchy eyes and Denies wheezing Physical exam (Primary Care) Vital Signs: Last Vital Signs Pulse 85 05/13/24 16:30 BP 120/84 05/13/24 16:30 Pulse Ox 96 05/13/24 16:30 Oxygen Delivery Method Room Air 05/13/24 16:30 BMI result Body Mass Index 39.2 Tobacco/Smoking Status: Tobacco use Status Tobacco use date assessed 05/13/24 05/13/24 16:32 Patient Tobacco Use Status Never used Tobacco 05/13/24 16:32 Tobacco use type Cigarette 05/13/24 16:32 e-Cigarette/Vaping Use Never Used 05/13/24 16:32 PHQ-9: PHQ-9 Score PHQ-9: Total score 0 05/13/24 17:06 Depression Screening Interpretation: Negative Thrive Assessment: Date of Thrive Assessment Date Thrive assessed 05/13/24 05/13/24 16:32 Currently or been in a relationship where the following occur: No concerns reported Const General: no acute distress, alert and awake Orientation/consciousness: patient oriented x3 HENMT Head: Yes normocephalic and Yes atraumatic Ears: external ears normal, TM's normal bilaterally and EAC's normal General nose exam: No nasal discharge present Face and sinus: Yes normal facial exam and Yes sinuses nontender Teeth and gingiva: dentition normal Throat: Yes posterior oropharynx normal and Yes tonsils normal (no TP congestion) Eyes Eyelids: Yes eyelids normal Conjunctivae: conjunctivae normal Pupils: Equal, round and reactive pupils present EOM: EOMs intact bilaterally Neck Neck: Yes no lymphadenopathy and Yes supple Thyroid: Thyroid normal Resp Auscultation: clear to auscultation bilaterally, no rales and no wheezes Cardio Rate: regular rate Rhythm: regular rhythm Heart sounds: no murmurs GI Palpation (GI): Soft to palpation, nontender and No hepatosplenomegaly present Auscultation: normal bowel sounds General: Yes no CVA tenderness Back/Spine/Pelvis Back: no CVA tenderness Thoracic/Lumbar Spine: thoracic and lumbar spine normal to inspection Skin Lesions: no lesions Rashes: no rashes Neuro General: patient oriented x3, moves all extremities, no focal motor deficits and CN's II-XI intact bilaterally Cranial nerves: Yes Equal, round and reactive pupils present Cognition (Neuro): normal cognition Gait exam (Neuro): Normal gait present Extrem General: Yes no clubbing, cyanosis or edema Office Procedures Flu Questionnaire Does the patient have a severe egg allergy?: No Immunizations Fluarix Triv [id number] (PF) 45 mcg (15 mcg x 3)/0.5 mL IM syringe Performing Provider: Deacon Murphy MD [facility] Documented (not given) by: MAYURI Childs on 05/13/24 17:06 Reason Not Given: Not Given Results Reviewed Results Reviewed: Laboratory Tests 05/13/24 05/13/24 07:45 07:46 WBC 7.1 Hgb 13.3 Hct 38.5 Plt Count 329 Sodium 140 Potassium 4.0 Creatinine 0.83 Estimated GFR > 60 Fasting Glucose 92 Hemoglobin A1c % 5.3 Calcium 9.1 Ferritin 41 Total Bilirubin 1.3 H AST 13 ALT 14 Triglycerides 111 Cholesterol 170 LDL Cholesterol, Calc 105 H HDL Cholesterol 43 25-OH Vitamin D Total 35.2 TSH 1.59 Ur Specific [place] 1.025 Urine Protein Negative Urine Glucose (UA) Negative Urine Blood Negative Urine Nitrite Negative Ur Leukocyte Esterase Negative Coding Level of Care Code Est Pt Prev Care 40-64y(13567) Diagnoses Annual physical exam Z00.00 Mixed hyperlipidemia E78.2 Hereditary hemochromatosis E83.110 Serum total bilirubin elevated R17 Obesity (BMI 30-39.9) E66.9 Assessment & Plan Assessment & Plan (1) Annual physical exam: Code(s): Z00.00 - Encounter for general adult medical examination without abnormal findings Category: Medical Plan: Results of her labs done yesterday reviewed and discussed with patient - have reassured her that all of her labs came back normal Her additional tests for her liver, including her liver fibrosis score, are all still pending and these usually take a few days to come out Have reassured patient that we will reach out to her if any of these remaining labs come back abnormal She declined getting her flu shot here today (2) Mixed hyperlipidemia: Code(s): E78.2 - Mixed hyperlipidemia Category: Medical Plan: Reinforced low cholesterol diet Her serum TG level was elevated when last checked in April 2023 but her LDL cholesterol was within normal range These have both since returned to normal range Will recheck her labs in 6 months for follow up (3) Hereditary hemochromatosis: Comment: 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 Most people with two copies of the H63D variant do not develop symptoms or iron overload but she should still have her iron levels monitored every 1?2 years Other factors that may be present include obesity or excessive alcohol consumption, which she should try to avoid as much as possible? Have also advised patient that her family members, including her parents and children, will also be carriers of the H63D variant? The H63D mutation disrupts the interaction with the transferrin receptor 1, which can lead to severe clinical consequences and?in patients with a cirrhotic liver, the mutation can increase the rate of liver cancer (4) Serum total bilirubin elevated: Code(s): R17 - Unspecified jaundice Category: Medical Plan: Have advised patient that this is likely due to her hemochromatosis and we will continue to monitor this regularly for now (5) Obesity (BMI 30-39.9): Code(s): E66.9 - Obesity, unspecified Category: Medical Plan: Reinforced diet/exercise as tolerated/lose weight Patient previously inquired about being prescribed a GLP-1 agonist like Ozempic or Wegovy to help her lose weight Have advised her at the time that as she just recently tested positive for hemochromatosis, patients with hemochromatosis may be at a slightly higher risk of developing acute pancreatitis from the GLP-1 agonists and she has now decided that she does not want to take the risk and does not wish to start on them for weight loss any longer Plan Follow up in 6 months Orders: Orders Complete Blood Count Auto Diff 6 Months D64.9 - Anemia, unspecified, E83.110 - Hereditary hemochromatosis Comprehensive [place]. Panel Fast 6 Months E78.00 - Pure hypercholesterolemia, unspecified, E83.110 - Hereditary hemochromatosis Lipid Panel 6 Months E78.00 - Pure hypercholesterolemia, unspecified, E83.110 - Hereditary hemochromatosis IRON PROFILE 6 Months D50.9 - Iron deficiency anemia, unspecified, E83.110 - Hereditary hemochromatosis Influenza [id number] Immunization 05/13/24 Z23 - Encounter for immunization Ferritin 6 Months E83.110 - Hereditary hemochromatosis, E83.119 - Hemochromatosis, unspecified
== END 2024-05-13 17:27 | disposition home or self-care (01) ==
PROVIDERS: PCP Internal Medicine; Visit Provider Internal Medicine
DX: Z00.00 Encounter for general adult medical examination without abnormal findings (principal); E66.812 Obesity, class 2; E83.110 Hereditary hemochromatosis; Z68.39 Body mass index [BMI] 39.0-39.9, adult; E78.2 Mixed hyperlipidemia; R17 Unspecified jaundice

== ENCOUNTER 2025-05-18 10:20 | Outpatient (REF) | payer OTHER, SELFPAY ==
--- OUTSIDE RECORDS SUMMARY | 2025-05-18 10:23 | XMS_ITS | Clinical Summary ---
Author Organization Patient Business Ser [facility] Address [address] [place] [address] Care Team Providers Care Director Religious Education Name Role Phone Lee Ann Orona MD Primary Care Provider Surgical History Surgery Date Site/Laterality Comments TUBAL LIGATION PROCEDURE: HISTORICAL TUBAL LIGATION Family History Medical History Relation Name Comments Breast cancer Aunt 1 Breast cancer Aunt 2 Hypertension Father Hypothyroid Thyroid disease Mother Lung cancer Paternal Grandfather Prostate cancer Uncle two uncles f rom fathers side, both > 50 yrs old Blindness Neg Hx Cataracts Neg Hx Glaucoma Neg Hx Macular degeneration Neg Hx Strabismus Neg Hx Relation Name Status Comments Aunt 1 paternal Aunt 2 Alive Father Mother Paternal Grandfather Uncle Social History Tobacco Use Types Packs/Day Years Used Date Smoking Tobacco: Never Smokeless Tobacco: Never Alcohol Use Standard Drinks/Week Comments Yes 0 (1 standard drink = 0.6 oz pur e alcohol) Comments Unknown Sex and Gender Information Value Date Recorded Sex Assigned at Not on file Legal Sex Female 4:03 PM EDT Gender Identity Not on file Sexual Orientation Not on file Obstetrics History Last Filed Vital Signs Vital Sign Reading Time Taken Comments Blood Pressure 111/79 02/22/2023 1:22 PM EDT Pulse 90 02/22/2023 1:22 PM EDT Temperature - - Respiratory Rate - - Oxygen Saturation - - Inhaled Oxygen Concentration - - Weight 96.3 kg (212 lb 3.2 oz) 02/22/2023 1:22 P M EDT Height 154.9 cm (5' 1 ) 02/22/2023 1:22 PM EDT Body Mass Index 40.09 02/22/2023 1:22 PM EDT Plan of Treatment Health Maintenance Due Date Last Done Comments DTaP,Tdap,and Td Vaccines (1 - Tdap) 2000 Hepatitis B Vaccines (1 of 3 - 19+ 3-dose series) 2000 HPV Vaccines (1 - 3-dose SCDM series) 2008 HIV Screening 01/04/2020 Hepatitis C Screening 01/04/2020 Social Influencers of Health Screening 01/04/2020 Cervical Cancer Screening: Pap Smear 06/26/2023 06/26/2022, 07/19/2020, 08/15/2018 Depression Screening 08/06/2024 COVID-19 Vaccine ( season) 2025 Influenza Vaccine (#1) 2025 Breast Cancer Screening 04/16/2026 04/16/20 24, 03/20/2023, 03/16/2022, Additional history exists RSV Immunization Adult Patients (1 - 1-dose 75+ series) 2056 HIB Vaccines Aged Out No longer eligi ble based on patient's age to complete this topic Hepatitis A Vaccines Aged Out No long er eligible based on patient's age to complete this topic IPV Vaccines Aged Out No longer eligi ble based on patient's age to complete this topic MMR Vaccines Aged Out No longer eligi ble based on patient's age to complete this topic Meningococcal ACWY Vaccine Aged Out N o longer eligible based on patient's age to complete this topic Meningococcal B Vaccine Aged Out No l onger eligible based on patient's age to complete this topic Pneumococcal Vaccine: Pediatrics (0 to 5 Years) and At-Risk Patients (6 to 49 Years) Aged Out No longer eligible based on patient's age to complete this topic RSV Immunization Patients Under 20 months Aged Out No longer eligible based on patient's age to complete this topic Varicella Vaccines Aged Out No longer eligible based on patient's age to complete this topic Procedures Procedure Name Priority Date/Time Associated Diagnosis Comments NIC SCREENING DIGITAL Routine 04/16/2024 2:59 PM EDT Encounter for screening mammogram for malignant neoplasm of breast PAP SMEAR Routine 06/26/2022 from Last 3 Months or Most Recently Relevant to Health Maintenance Results * NIC SCREENING DIGITAL (04/16/2024 2:59 PM EDT) Anatomical Region Laterality Modality Mammography 04/15/2024 12:5 1 PM EDT Narrative 04/16/2024 2:59 PM EDT [facility] Diagnostic Imaging Department [address] [place] [id number] Patient: JONATAN BATES/Age/Sex: 1980 - 43 - F Unit#: [id number] Location/Status: [facility] CLI Mnemonic/Ordering Site: [facility] Ordering Physician: LEE ANN ORONA MD [facility] Screening Digital - 04/15/24 - 1316 Report Status:Signed EXAM: [facility] Screening Digital EXAM DATE AND TIME: 04/15/2024 1:24 PM HISTORY: Screening. Paternal aunt had breast carcinoma. COMPARISON: 03/20/23, 03/16/22, 03/14/21 ([facility], [place], [place]) TECHNIQUE: Bilateral digital breast tomosynthesis was performed in the CC and MLO projections. Computer aided detection with [employer] 3D 3.1 was employed. TISSUE DENSITY: b. There are scattered areas of fibroglandular density. FINDINGS: No suspicious masses, grouped microcalcifications, or areas of architectural distortion are seen. The skin and vascularity are unremarkable. IMPRESSION: Stable mammographic appearance of the breasts. No evidence of malignancy is seen. A negative mammogram in the presence of a clinically suspicious palpable abnormality does not preclude the possibility of malignancy or alter the indications for biopsy. BI-RADS: Category 1: Negative RECOMMENDATION(S): 1: Routine screening mammogram BILATERAL in 1 year. [facility] [address] [place] [address] Dictating Physician: JENAE CABALLERO MD Electronically Signed by: JENAE CABALLERO MD Dic Date/Time: 04/16/241457 Sign date/Time: 04/16/24 1459 Procedure Note Jenae Caballero MD - 05/21/2024 [facility] Diagnostic Imaging Department [address] [place] [address] Patient: JONATAN BATES./Age/Sex: 1980 - 43 - F Unit#: [id number] Location/Status: [facility]REG CLI Mnemonic/Ordering Site: [facility] Ordering Physician: LEE ANN ORONA MD [facility] Screening Digital - 04/15/24 - 1316 Report Status:Signed EXAM: [facility] Screening Digital EXAM DATE AND TIME: 04/15/2024 1:24 PM HISTORY: Screening. Paternal aunt had breast carcinoma. COMPARISON: 03/20/23, 03/16/22, 03/14/21 ([facility], [place], [place]) TECHNIQUE: Bilateral digital breast tomosynthesis was performed in the CCand MLO projections. Computer aided detection with [employer] 3D 3.1was employed. TISSUE DENSITY: b. There are scattered areas of fibroglandular density. FINDINGS: No suspicious masses, grouped microcalcifications, or areas ofarchitectural distortion are seen. The skin and vascularity are unremarkable. IMPRESSION: Stable mammographic appearance of the breasts. No evidence of malignancyis seen. A negative mammogram in the presence of a clinically suspicious palpable abnormality does not preclude the possibility of malignancy or alter the indications for biopsy. BI-RADS: Category 1: Negative RECOMMENDATION(S): 1: Routine screening mammogram BILATERAL in 1 year. Mammogram performed at [facility] [place] [address] Dictating Physician: JENAE CABALLERO MD Electronically Signed by: JENAE CABALLERO MD Dic Date/Time: 04/16/241457 Sign date/Time: 04/16/241458 Lee Ann Orona MD IMG BI PROCEDURES Final Resu lt * Pap smear (06/26/2022) 06/26/2022 Narrative HISTORICAL TESTING LAB RESULTING AGENCY - 07/03/2022 4:15 PM EST [id number] THINPREP PAP, IMAGED: NEGATIVE FOR SQUAMOUS INTRAEPITHELIAL LESION AND MALIGNANCY . SHIFT IN LEIDA, SUGGESTIVE OF BACTERIAL VAGINOSIS. ANTON ROJAS(ASCP) (CASE ELECTRONICALLY SIGNED 07 03 2022) RESULT OF APTIMA HIGH RISK HPV ASSAY: HIGH RISK HPV: NEGATIVE (SEROTYPES 16,18,31,33,35,39,45,51,52,56,58,59,66,68) COMPLETED ON 2022-06-27 ADEQUACY: SATISFACTORY ENDOCERVICAL/TRANSFORMATION ZONE COMPONENT PRESENT. SOURCE: THINPREP PAP HPV ANY DX: REFLEX 16 AND 18, CERVICAL, IMAGED CLINICAL INFORMATION: HPV ANY DIAGNOSIS. HORMONES, PAP HX ASCUS, [[id number]] us Yaima Escobedo CNDeepika LAB CYTOLOGY ORDERABLES Final Result HISTORICAL TESTING LAB RESULTING AGENCY from Last 3 Months or Most Recently Relevant to Health Maintenance Care Teams Director Religious Education Relationship Specialty Start Date End Date Lee Ann Orona MD [address] [place] [address] Dr [address] NICOL Galloway PCP - General Internal Medicine 12/17/17
[2025-05-18 10:31] LABS: MANUAL DIFF FLAG NO
[2025-05-18 10:59] LABS: Hematocrit 41.0 % (37.0-47.0); Hemoglobin 13.5 g/dl (12.0-16.0); Imm Gran Abs Auto 0.02 X10*3/uL (0.00-0.03); Imm Gran Pct Auto 0.3 % (0.0-0.4); Lymphocytes Absolute Auto 2.0 X10*3/uL (1.2-4.9); Mean Corpuscular HGB Conc 32.9 g/dl (31.0-35.0); Mean Corpuscular Hemoglobin 30.5 pg (27.0-33.0); Mean Corpuscular Volume 92.8 fL (80.0-98.0); NRBC Abs Auto 0.000 X10*3/uL (0.0-0.012); NRBC Pct Auto 0.0 /100WBC (0.0-0.2); Platelet Count 360 X10*3/uL (160-400); Red Blood Count 4.42 X10*6/uL (4.20-5.50); White Blood Count 7.3 X10*3/uL (4.8-10.8)
[2025-05-18 11:29] LABS: Alanine Aminotransferase 15 U/L (0-31); Albumin Level 4.4 g/dL (3.5-5.0); Alkaline Phosphatase 67 U/L (39-117); Anion Gap 10 (12-20); Aspartate Amino Transferase 16 U/L (5-31); Blood Urea Nitrogen 10 mg/dL (9-16); Calcium 9.3 mg/dL (8.4-10.2); Carbon Dioxide 25 mmol/L (22-29); Chloride 109 mmol/L (96-108); Cholesterol 181 mg/dL (<200); Estimated Glomerular Filt Rate > 60; HDL Cholesterol 53 mg/dL (>40); Iron 162 mcg/dL (30-160); Percent Iron Saturation 59 % (15-50); Potassium 4.4 mmol/L (3.3-5.1); Sodium 140 mmol/L (135-145); Total Iron Binding Capacity 275 mcg/dL (228-428); Total Protein 7.4 g/dL (6.5-8.0); Triglycerides 121 mg/dL (<150); Unsaturated Iron Binding 113 ug/dL
[2025-05-18 11:48] LABS: Ferritin 42 ng/mL (10-250)
== END 2025-05-18 10:21 | disposition home or self-care (01) ==
LOC: HO.LAB 10:20
PROVIDERS: PCP Internal Medicine; Visit Provider Internal Medicine
DX: E83.110 Hereditary hemochromatosis (principal); E78.00 Pure hypercholesterolemia, unspecified; D64.9 Anemia, unspecified
CPT/HCPCS: 36415; 80053; 80061; 82728; 83540; 85025; 96127

== ENCOUNTER 2025-05-18 16:42 | Outpatient (AMB) | payer OTHER, SELFPAY ==
[2025-05-18 16:44] VITALS: BP 126/78; PULSE 87; O2SAT 93; BMI 39.5
--- NOTE | 2025-05-18 16:44 | A.OFFPC_ITS ---
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: No Accompanied by: Self / Same As Patient Allergies No Known Allergies Allergy (Verified 05/18/25 16:58) Medication List - Last Reconciled 05/18/25 by Deacon Murphy MD No Known Home Meds Tobacco use date assessed: 05/18/25 Dental Screening Dental Screen Date: 05/18/25 HPI annual exam HPI Details Patient comes in today for her annual physical examination States that she has increased nasal and sinus congestion for the past 2 weeks She has since tested negative for COVID twice She denies any fever or sore throat Denies any dizziness but reports (+) recurrent GUTIERREZ over the past 2 weeks, especially at night Denies any chest pains, no SOB No nausea/vomiting, no abdominal pain No change in bowel habits noted Denies any acute urinary symptoms Adds that both of her big toenails have been dystrophic for a while now and that her right big toenail fell off a while back but sha has been experiencing some pain over her right big toenail lately She would also like to see if she can be tried on a GLP-1 Rx to help her lose weight as she continues to struggle to lose weight unsuccessfully She had her follow up labs done earlier today - to discuss her results She had her annual mammogram last done a year ago in April 2024 and is due for her mammogram this year States that she goes to [facility] in the past for her yearly gynecology exam and pap smear and thinks that she had these done earlier this year [facility] Medical History (Updated 05/25/25 @ 01:10 by Deacon Murphy MD) Hereditary hemochromatosis Mixed hyperlipidemia Hemochromatosis Gallstones Obesity (BMI 30-39.9) Surgical History Hx of tubal ligation Family History Mother Family history of thyroid problem Father High blood pressure Family history of thyroid problem Social History (Reviewed 05/18/25 @ 16:45 by PERFECTO Childs Household Members: Spouse and Children Housing: House Do you presently have visiting nurse or other home services: No Alcohol intake: unknown Patient Tobacco Use Status: Never used Tobacco Tobacco use type: Cigarette e-Cigarette/Vaping Use: Never Used Second Hand Smoke Exposure: No service: No Current occupational status: employed 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 1. Little interest or pleasure in doing things: not at all 2. Feeling down, depressed, or hopeless: not at all 3. Trouble falling or staying asleep, or sleeping too much: not at all 4. Feeling tired or having little energy: not at all 5. Poor appetite or overeating: not at all 6. Feeling bad about yourself - or that you are a failure or have let yourself or your family down: not at all 7. Trouble concentrating on things, such as reading the newspaper or watching television: not at all 8. Moving or speaking so slowly that other people could have noticed. Or the opposite - being so fidgety or restless that you have been moving around a lot more than usual: not at all 9. Thoughts that you would be better off or of hurting yourself in some way: not at all Total score: 0 Depression Screening Interpretation: Negative Depression Screening Done: Yes 95446 - PHQ-9 Billing: Yes Source: Developed by Drs. Bogdan Pool, Cat Flores, Mykel Mariano and colleagues, with an educational kelby from [employer]. Thrive Questionnaire Date Thrive assessed: 05/18/25 I am a: Patient What is your living situation today?: I have a steady place to live Within the past 12 months, did the food you bought not last and you didn't have the money to get more?: Never true Within the past 12 months, did you worry whether your food would run out before you got money to buy more?: Never true Do you have trouble paying for medicines?: No Do you have trouble getting transportation to medical appointments?: No Do you have trouble paying your heating and electricity bill?: No Do you have trouble taking care of your child, family member or friend?: No Do you have trouble with day-to-day activities such as bathing, preparing meals, shopping, managing finances, etc.?: No Are you currently unemployed and looking for a job?: Yes Are you interested in more education?: No Please select the resources that you would like help with: None Currently or been in a relationship where the following occur: No concerns reported THRIVE Score: 0 AUDIT C Alcohol Use Questionnaire (AUDIT-C) 1. How often do you have a drink containing alcohol?: Monthly or less 2. How many drinks containing alcohol do you have on a typical day when you are drinking?: 1 or 2 3. How often do you have six or more drinks on one occasion?: Never Total Score: 1 Score Reviewed/Action Taken: Yes KIRA-7 AMB Questionnaire KIRA-7 Date KIRA - 7 assessed: 05/18/25 Feeling nervous, anxious, or on edge: 0 = Not at all Not being able to stop or control worryin = Not at all Worrying too much about different things: 0 = Not at all Trouble relaxin = Not at all Being so restless that it is hard to sit still: 0 = Not at all Becoming easily annoyed or irritable: 0 = Not at all Feeling afraid as if something awful might happen: 0 = Not at all Total KIRA-7 score (0-4 normal; 5-9 mild; 10-14 moderate; 15-21 severe): 0 Source: Developed by Drs. Bogdan Pool, Cat Flores, Mykel Mariano and colleagues, with an educational kelby from [employer]. Review of Systems Const Denies chills, Denies fatigue, Denies fever(s), Denies headache(s) and Denies malaise Eyes Denies blurry vision, Denies change in vision, Denies irritation and Denies itchy eyes ENT Denies dysphagia, Denies dizziness, Denies otalgia, Denies headache(s), Reports nasal congestion, Denies neck pain, Denies odynophagia, Denies sinus pain, Reports sinus pressure and Denies sore throat Card Denies chest pain, Denies rapid heart rate, Denies irregular heart rhythm, Denies palpitations and Denies dyspnea Resp Denies chest congestion, Denies cough, Denies dyspnea and Denies wheezing GI Denies abdominal pain, Denies bloating, Denies constipation, Denies dysphagia, Denies heartburn, Denies diarrhea, Denies nausea, Denies odynophagia and Denies vomiting Denies hematuria, Denies urinary frequency, Denies dysuria, Denies urinary incontinence and Denies urinary urgency Musc Denies back pain, Denies arthralgias, Denies joint swelling, Denies muscle weakness and Denies neck pain Skin/Breast Denies breast pain, Denies breast mass, Denies change in pigmentation, Denies lesions, Denies rash and Denies unusual bruising Neuro Denies dizziness, Denies headache(s) and Denies paresthesias Psych Denies anxiety and Denies depression Endo Denies fatigue and Denies palpitations Vinayak/Lymph Denies easy bruising Aller/Immun Denies itchy eyes and Denies wheezing Physical exam (Primary Care) Vital Signs: Last Vital Signs Pulse 87 05/18/25 16:44 BP 126/78 05/18/25 16:44 Pulse Ox 93 05/18/25 16:44 Oxygen Delivery Method Room Air 05/18/25 16:44 BMI result Body Mass Index 39.5 Tobacco/Smoking Status: Tobacco use Status Tobacco use date assessed 05/18/25 05/18/25 16:48 Patient Tobacco Use Status Never used Tobacco 05/18/25 16:48 Tobacco use type Cigarette 05/18/25 16:48 e-Cigarette/Vaping Use Never Used 05/18/25 16:48 PHQ-9: PHQ-9 Score PHQ-9: Total score 0 05/19/25 01:50 Depression Screening Interpretation: Negative Thrive Assessment: Date of Thrive Assessment Date Thrive assessed 05/18/25 05/18/25 16:48 Currently or been in a relationship where the following occur: No concerns reported Const General: no acute distress, alert and awake Orientation/consciousness: patient oriented x3 HENMT Head: Yes normocephalic and Yes atraumatic Ears: external ears normal, TM's normal bilaterally and EAC's normal General nose exam: No nasal discharge present Face and sinus: Yes normal facial exam and Yes sinuses nontender Teeth and gingiva: dentition normal Throat: Yes posterior oropharynx normal and Yes tonsils normal (no TP congestion) Eyes Eyelids: Yes eyelids normal Conjunctivae: conjunctivae normal Pupils: Equal, round and reactive pupils present EOM: EOMs intact bilaterally Neck Neck: Yes supple and No lymphadenopathy Thyroid: Thyroid normal Resp Auscultation: clear to auscultation bilaterally, no rales and no wheezes Cardio Rate: regular rate Rhythm: regular rhythm Heart sounds: no murmurs GI Palpation (GI): Soft to palpation, nontender and No hepatosplenomegaly present Auscultation: normal bowel sounds General: Yes no CVA tenderness Back/Spine/Pelvis Back: no CVA tenderness Thoracic/Lumbar Spine: thoracic and lumbar spine normal to inspection Skin Lesions: no lesions Rashes: no rashes Neuro General: patient oriented x3, moves all extremities, no focal motor deficits and CN's II-XI intact bilaterally Cranial nerves: Yes Equal, round and reactive pupils present Cognition (Neuro): normal cognition Gait exam (Neuro): Normal gait present Extrem General: Yes no clubbing, cyanosis or edema Results Reviewed Results Reviewed: Laboratory Tests 05/18/25 10:30 WBC 7.3 Hgb 13.5 Hct 41.0 Plt Count 360 Sodium 140 Potassium 4.4 Creatinine 0.77 Estimated GFR > 60 Fasting Glucose 96 Calcium 9.3 Iron 162 H TIBC 275 % Saturation 59 H Ferritin 42 AST 16 ALT 15 Triglycerides 121 Cholesterol 181 LDL Cholesterol, Calc 104 H HDL Cholesterol 53 Coding Level of Care Code Est Pt Prev Care 40-64y(20127) Diagnoses Annual physical exam Z00.00 Respiratory tract infection J98.8 Mixed hyperlipidemia E78.2 Hereditary hemochromatosis E83.110 Serum total bilirubin elevated R17 Obesity (BMI 30-39.9) E66.9 Additional Codes PHQ-9 - 57069 - PHQ-9 Billing: Yes ([id number]) Assessment & Plan Assessment & Plan (1) Annual physical exam: Code(s): Z00.00 - Encounter for general adult medical examination without abnormal findings Category: Medical Plan: Results of her labs done earlier today reviewed and discussed with patient She had her annual mammogram last done a year ago in April 2024 and is due for her mammogram this year States that she goes to the [facility] in the past for her yearly gynecology exam and pap smear and thinks that she had these done earlier this year (2) Respiratory tract infection: Code(s): J98.8 - Other specified respiratory disorders Category: Medical Plan: Will start patient empirically on Augmentin 875 mg BID x 10 days (3) Mixed hyperlipidemia: Code(s): E78.2 - Mixed hyperlipidemia Category: Medical Plan: Reinforced low cholesterol diet Her serum TG level was elevated when last checked in April 2023 but her LDL cholesterol was within normal range These have both since returned to normal and have remained normal on her recent labs Will recheck her labs in 6 months for follow up (4) Hereditary hemochromatosis: Comment: 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) when she was admitted to the hospital for jaundice in 04/2023 Code(s): E83.110 - Hereditary hemochromatosis Category: Medical Plan: 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 Most people with two copies of the H63D variant do not develop symptoms or iron overload but she should still have her iron levels monitored every 1?2 years Other factors that may be present include obesity or excessive alcohol consumption, which she should try to avoid as much as possible? Have also advised patient that her family members, including her parents and children, will also be carriers of the H63D variant? The H63D mutation disrupts the interaction with the transferrin receptor 1, which can lead to severe clinical consequences and?in patients with a cirrhotic liver, the mutation can increase the rate of liver cancer (5) Serum total bilirubin elevated: Code(s): R17 - Unspecified jaundice Category: Medical Plan: Have advised patient that this is likely due to her hemochromatosis and we will continue to monitor this regularly for now (6) Obesity (BMI 30-39.9): Code(s): E66.9 - Obesity, unspecified Category: Medical Plan: Reinforced diet/exercise as tolerated/lose weight Patient previously inquired about being prescribed a GLP-1 agonist like Ozempic or Wegovy to help her lose weight and remains interested in this Will try starting her on Zepbound 2.5 mg SQ once a week IF her insurance will cover the Rx Have advised patient again that those with hemochromatosis may be at a slightly higher risk of developing acute pancreatitis from the GLP-1 agonists and that she is to immediately stop taking the medication and reach out to us LOCO if she starts experiencing increased abdominal pain when on the Rx Plan To return in 1 year for her next annual physical examination Orders: Orders Complete Blood Count Auto Diff 1 Year D64.9 - Anemia, unspecified, Z00.00 - Encounter for general adult medical examination without abnormal findings Comprehensive [place]. Panel Fast 1 Year E78.00 - Pure hypercholesterolemia, unspecified, Z00.00 - Encounter for general adult medical examination without abnormal findings Lipid Panel 1 Year E78.00 - Pure hypercholesterolemia, unspecified, Z00.00 - Encounter for general adult medical examination without abnormal findings TSH reflex Free T4 1 Year E78.00 - Pure hypercholesterolemia, unspecified, Z00.00 - Encounter for general adult medical examination without abnormal findings UA CC w/rflx Micro + Cult 1 Year R30.0 - Dysuria, Z00.00 - Encounter for general adult medical examination without abnormal findings Vitamin D 25-OH Total 1 Year E55.9 - Vitamin D deficiency, unspecified, Z00.00 - Encounter for general adult medical examination without abnormal findings MM tomosynthesis screening BI 05/18/25 Z12.31 - Encounter for screening mammogram for malignant neoplasm of breast Vitamin B12 and Folate 1 Year E53.8 - Deficiency of other specified B group vitamins, Z00.00 - Encounter for general adult medical examination without abnormal findings Referrals Podiatry Referral L60.3 - Nail dystrophy Medications: New amoxicillin-pot clavulanate 875-125 mg 1 tab PO BID 20 tabs 0RF 10 days tirzepatide (weight loss) (Zepbound) for 4 weeks 2.5 mg (0.5 mL) subcut QWEEK 2 mL 0RF 4 weeks
== END 2025-05-18 17:12 | disposition home or self-care (01) ==
LOC: HO.HMCH 16:43
PROVIDERS: PCP Internal Medicine; Visit Provider Internal Medicine
DX: Z00.00 Encounter for general adult medical examination without abnormal findings (principal); J98.8 Other specified respiratory disorders; E66.9 Obesity, unspecified; Z68.39 Body mass index [BMI] 39.0-39.9, adult; E78.2 Mixed hyperlipidemia; E83.110 Hereditary hemochromatosis; R17 Unspecified jaundice

== ENCOUNTER 2025-06-08 07:57 | Outpatient (AMB) | payer OTHER, SELFPAY ==
--- OUTSIDE RECORDS SUMMARY | 2025-06-08 08:01 | XMS_ITS | Clinical Summary ---
Author Organization Patient Business Ser [facility] Address [address] [place] [address] Care Team Providers Care Manager Statistics Name Role Phone Lee Ann Orona MD [...] EDT Narrative 04/16/2024 2:[address] [facility] Diagnostic Imaging Department [address] [place] [id number] Patient: JONATAN BATES/Age/Sex: 1980 - 43 - F Unit#: [id number] Location/Status: [facility] CLI Mnemonic/Ordering Site: [facility] Ordering Physician: LEE ANN ORNOA MD [facility] Screening Digital - 04/15/24 - 1316 Report Status:Signed EXAM: [facility] Screening Digital EXAM DATE AND TIME: 04/15/2024 1:24 PM HISTORY: Screening. Paternal aunt had breast carcinoma. COMPARISON: 03/20/23, 03/16/22, 03/14/21 ([facility], [place], [place]) TECHNIQUE: Bilateral digital breast tomosynthesis was performed in the CC and MLO projections. Computer aided detection with [employer] [place] [employer] 3[employer]1 was employed. TISSUE DENSITY: b. [...] Mammogram performed at [facility] [address] [place] [address] Dictating Physician: JENAE CABALLERO MD Electronically Signed by: JENAE CABALLERO MD Dic Date/Time: 04/16/241457 Sign date/Time: 04/16/24 1459 Procedure Note Jenae Caballero MD - 05/21/[address] [facility] Diagnostic Imaging Department [address] [place] [address] Patient: JONATAN BATES./Age/Sex: 1980 - 43 - F Unit#: [id number] Location/Status: [facility]/REG CLI Mnemonic/Ordering Site: [facility] Ordering Physician: LEE ANN ORONA MD [facility] Screening Digital - 04/15/24 - 1316 Report Status:Signed EXAM: [facility] Screening Digital EXAM DATE AND TIME: 04/15/2024 1:24 PM HISTORY: Screening. Paternal aunt had breast carcinoma. COMPARISON: 03/20/23, 03/16/22, 03/14/21 ([facility], [place], [place]) TECHNIQUE: Bilateral digital breast tomosynthesis was performed in the CCand MLO projections. Computer aided detection with [employer] [place] [employer]was employed. TISSUE DENSITY: b. There [...] Mammogram performed at [facility] [place] [address] Dictating Physician: JENAE CABALLERO MD Electronically Signed by: JENAE CABALLERO MD Dic Date/Time: 04/16/241457 Sign date/Time: 04/16/241458 Lee Ann Orona MD IMG BI PROCEDURES Final Resu lt * Pap smear (06/26/2022) 06/26/2022 Narrative HISTORICAL TESTING LAB RESULTING AGENCY - 07/03/2022 4:15 PM EST [id number] THINPREP PAP, IMAGED: NEGATIVE FOR SQUAMOUS INTRAEPITHELIAL [...] Recently Relevant to Health Maintenance Care Teams Manager Statistics Relationship Specialty Start Date End Date Lee Ann Orona MD [address] [place] [address] Dr [address] NICOL Galloway PCP - General Internal Medicine 12/17/17
[2025-06-08 08:08] VITALS: BMI 38.5
--- NOTE | 2025-06-08 08:08 | MHC.OFFVIS ---
Vital Signs 06/08/25 08:08 Height 5 ft 1 in Weight 204 lb BMI 38.5 Intake Visit Reasons: pain in toes, both feet Intake Note: rahel is a 44 year old female who presents today as a new patient for an evaluation of her bilateral hallux pain. Pt reports both of her toe nails are missing and has been missing for over 7 years. She mentions she has fungus growth and she purchased OTC treatment and has found no relief for her symptoms. Allergies No Known Allergies Allergy (Verified 06/08/25 08:09) Medication List - Last Reconciled 06/08/25 by Madelyn Mahmood DPM ciclopirox 8% 1 appl topical BEDTIME 4 weeks HPI Comments Details: The patient is a 44-year-old female with a PMH as seen below presenting with toenail issues to Latoya/Ilir miller. The patient reports losing her toenails seven years ago while in [place]. She experiences intermittent pain at night, described as a quick, fleeting sensation. The patient has attempted various treatments, including [id number]-[id number] antifungal canadian and cleaning with a holistic treatment including ingredients like garlic, vinegar, and baking soda. Despite these efforts, the nails have not grown beyond a certain length, and the patient continues to clean them regularly. She states this current length is the longest its been in a while. She denies any recent pedal injuries. Denies any other pedal concerns. [facility] Medical History (Updated 06/08/25 @ 08:19 by Madelyn Mahmood DPM) Nail disorder Nail dystrophy Onychomycosis Hereditary hemochromatosis Mixed hyperlipidemia Hemochromatosis Gallstones Obesity (BMI 30-39.9) Surgical History Hx of tubal ligation Family History Mother Family history of thyroid problem Father High blood pressure Family history of thyroid problem Social History Household Members: Spouse and Children Housing: House Do you presently have visiting nurse or other home services: No Alcohol intake: unknown Patient Tobacco Use Status: Never used Tobacco Tobacco use type: Cigarette e-Cigarette/Vaping Use: Never Used Second Hand Smoke Exposure: No service: No Current occupational status: employed 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 - Integumentary: Reports abnormally shortened nails with increased thickness and discoloration. All systems reviewed & are unremarkable except as noted in HPI and below Physical Exam Vital Signs: BMI result Body Mass Index 38.5 Extrem Other: B/L LE Focused Physical Exam: Derm: Abnormally short nails noted to B/L halluces with increased thickness and discoloration noted with minimal subungual debris. Remaining nails x8 noted to be WNL. Skin supple and turgor WNL. No maceration noted. No discoloration or ecchymosis noted. No clinical signs of infection. No drainage, purulence, or bleeding noted. Vasc: DP/PT pulses palpable. CFT < 3 secs. Temp gradient warm to warm. Pedal hair absent. No edema noted. No varicosities noted. Neuro: Protective sensations grossly intact. MSK: No pain on palpation to B/L halluces noted. ROM of the forefoot, hindfoot, and ankles WNL. No crepitus or fluctuance noted. Nonantalgic gait noted unassisted. Office Procedures AMB Debridement/Avulsion Podia Details: Debrided B/L hallucal toenails using a sterile corby favio dremel without any incidents. [id number] of Nail <6 Procedure code (CPT) selection complete Results Reviewed Results Reviewed: Laboratory Tests 05/18/25 10:30 AST 16 ALT 15 Assessment & Plan Assessment & Plan (1) Nail disorder: Code(s): L60.9 - Nail disorder, unspecified Category: Medical (2) Nail dystrophy: Code(s): L60.3 - Nail dystrophy Category: Medical (3) Onychomycosis: Code(s): B35.1 - Tinea unguium Category: Medical Plan Patient was informed and verbally consented to the use of an ambient scribe for clinic note documentation during this visit. I discussed with the patient the diagnosis of onychomycosis and the available treatment options, including topical and oral antifungal medications. I explained the importance of daily application of the topical treatment and the potential side effects of oral medication, such as LFT elevation, which necessitates regular monitoring. We also discussed the possibility of nail removal in severe cases, although it is not currently indicated for this patient. - Prescribed Ciclopirox to be applied daily with proper nail preparation (filing) for optimal absorption. - Advise continued cleaning and maintenance of nail bed to promote healthy nail growth. - Advised patient to wear clean socks and shoes and to avoid barefoot walking. RTC in 1 month. Orders: Orders AMB Debridement/Avulsion Podiatry Today B35.1 - Tinea unguium, L60.3 - Nail dystrophy, L60.9 - Nail disorder, unspecified Medications: New ciclopirox 8% 1 appl topical BEDTIME 6.6 mL 1RF Onychomycosis 4 weeks B35.1 - Tinea unguium, L60.3 - Nail dystrophy, L60.9 - Nail disorder, unspecified Coding Level of Care Code [facility] New Pt Level 3 (05165) Diagnoses Nail disorder L60.9 Nail dystrophy L60.3 Onychomycosis B35.1 CPT Codes Skin Debridement - CPT: 92420-Spxmcpndwms of Nail <6 ([id number]) Time Spent (min) 35 Comment 5 mins for the procedure
== END 2025-06-08 08:25 | disposition home or self-care (01) ==
LOC: HO.HPODS 07:58
PROVIDERS: PCP Internal Medicine; Visit Provider Student in an Organized Health Care Education/Training Program
DX: L60.9 Nail disorder, unspecified (principal); L60.3 Nail dystrophy; B35.1 Tinea unguium
CPT/HCPCS: 11720; 99203

== ENCOUNTER → 2025-06-08 07:57 | Outpatient (BNVA) | payer OTHER, SELFPAY | PROVIDERS: PCP Internal Medicine; Visit Provider Student in an Organized Health Care Education/Training Program | DX: L60.3 Nail dystrophy (principal); L60.9 Nail disorder, unspecified; B35.1 Tinea unguium; L60.2 Onychogryphosis; M79.672 Pain in left foot; M79.671 Pain in right foot | CPT/HCPCS: 11720 ==

== ENCOUNTER 2025-07-17 14:38 | Outpatient (REF) | payer OTHER, SELFPAY ==
--- OUTSIDE RECORDS SUMMARY | 2025-07-17 19:50 | XMS_ITS | Clinical Summary ---
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 Machine Tender Name Role Phone Lee Ann Orona MD [...] on file Sexual Orientation Not on file Last Filed Vital Signs Vital Sign Reading [...] PM EDT Narrative 04/16/2024 2:59 PM EDT [facility] Diagnostic Imaging Department [address] [place] [id number] Patient: JONATAN BATES./Age/Sex: 1980 - 43 - F Unit#: [id number] Location/Status: [facility] CLI Mnemonic/Ordering Site: [facility] Ordering Physician: LEE ANN ORONA MD [facility] Screening Digital - 04/15/24 - 1316 Report Status:Signed EXAM: [facility] Screening Digital EXAM DATE AND TIME: 04/15/2024 1:24 PM HISTORY: Screening. Paternal aunt had breast carcinoma. COMPARISON: 03/20/23, 03/16/22, 03/14/21 ([facility], [place], [place]) TECHNIQUE: Bilateral digital breast tomosynthesis was performed in the CC and MLO projections. 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 TISSUE DENSITY: b. [...] Mamm[facility] performed at [facility] [address] [place] [address] Dictating Physician: JENAE CABALLERO MD Electronically Signed by: JENAE CABALLERO MD Dic Date/Time: 04/16/241457 Sign date/Time: 04/16/24 1459 Procedure Note Jenae Caballero MD - 05/21/2024 [facility] Diagnostic Imaging Department [address] [place] [address] Patient: JONATAN BATES D.O.B./Age/Sex: 1980 - 43 - F Unit#: [id number] Location/Status: [facility] CLI Mnemonic/Ordering Site: [facility] Ordering Physician: LEE ANN ORONA MD [facility] Screening Digital - 04/15/24 - 1316 Report Status:Signed EXAM: [facility] Screening Digital EXAM DATE AND TIME: 04/15/2024 1:24 PM HISTORY: Screening. Paternal aunt had breast carcinoma. COMPARISON: 03/20/23, 03/16/22, 03/14/21 ([facility], [place], [place]) TECHNIQUE: Bilateral digital breast tomosynthesis was performed in the CCand MLO projections. Computer aided detection with iCAD [employer] 3D 3.1was employed. TISSUE DENSITY: b. There [...] Mammogram performed at [facility] [place] [address] Dictating Physician: JENAE CABALLERO MD Electronically Signed by: JENAE CABALLERO MD Dic Date/Time: 04/16/241457 Sign date/Time: 04/16/241458 Lee Ann Orona MD IMG BI PROCEDURES Final Resu lt * Pap smear (06/26/2022) 06/26/2022 Narrative HISTORICAL TESTING LAB RESULTING AGENCY - 07/03/2022 4:15 PM EST [id number] THINPREP PAP, IMAGED: NEGATIVE FOR SQUAMOUS INTRAEPITHELIAL LESION AND MALIGNANCY . SHIFT IN ELIDA, SUGGESTIVE OF BACTERIAL VAGINOSIS. ANTON ROJAS(ASCP) (CASE ELECTRONICALLY SIGNED 07 03 2022) RESULT OF APTIMA HIGH RISK HPV ASSAY: HIGH RISK HPV: NEGATIVE (SEROTYPES 16,18,31,33,35,39,45,51,52,56,58,59,66,68) COMPLETED ON 2022-06-27 ADEQUACY: SATISFACTORY ENDOCERVICAL/TRANSFORMATION ZONE COMPONENT PRESENT. SOURCE: THINPREP PAP HPV ANY DX: REFLEX 16 AND 18, CERVICAL, IMAGED CLINICAL INFORMATION: HPV ANY DIAGNOSIS. HORMONES, PAP HX ASCUS, [Z01.419] us Yaima Escobedo CN LAB CYTOLOGY ORDERABLES Final Result HISTORICAL TESTING LAB RESULTING AGENCY from Last 3 Months or Most Recently Relevant to Health Maintenance Care Teams Bag Machine Tender Relationship Specialty Start Date End Date Lee Ann Orona MD [address] [place] [address] Dr [address] NICOL Galloway PCP - General Internal Medicine 12/17/17
== END 2025-07-17 14:39 | disposition home or self-care (01) ==
LOC: HO.MAMMO 14:38
PROVIDERS: PCP Internal Medicine; Visit Provider Internal Medicine
DX: Z12.31 Encounter for screening mammogram for malignant neoplasm of breast (principal)
CPT/HCPCS: 77063; 77067

== ENCOUNTER → 2025-07-17 15:00 | Outpatient (BNV) | payer OTHER, SELFPAY | PROVIDERS: PCP Internal Medicine; Visit Provider Internal Medicine | DX: Z12.31 Encounter for screening mammogram for malignant neoplasm of breast (principal) | CPT/HCPCS: 77063; 77067 ==

== ENCOUNTER 2025-07-31 11:20 | Outpatient (REF) | payer OTHER, SELFPAY ==
--- OUTSIDE RECORDS SUMMARY | 2025-07-31 11:23 | XMS_ITS | Clinical Summary ---
Author Organization Patient Business Ser [facility] Address [address] [place] [address] Care Team Providers Care Provider Education Specialist Name Role Phone Lee Ann Orona MD [...] PM EDT Narrative 04/16/2024 2:[address] [facility] Diagnostic Imaging Department [address] [place] [id number] Patient: JONATAN BATES./Age/Sex: 1980 - 43 - F Unit#: [id number] [facility] CLI Mnemonic/Ordering Site: [facility] Ordering Physician: LEE ANN ORONA MD [facility] Screening Digital - 04/15/24 - 1316 Report Status:Signed EXAM: [facility] Screening Digital EXAM DATE AND TIME: 04/15/2024 1:24 PM HISTORY: Screening. Paternal aunt had breast carcinoma. COMPARISON: 03/20/23, 03/16/22, 03/14/21 ([facility], [place], [place]) TECHNIQUE: Bilateral digital breast tomosynthesis was performed in the CC and MLO projections. 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 TISSUE DENSITY: b. [...] Mammogram performed at [facility] [address] [place] [address] Dictating Physician: JENAE CABALLERO MD Electronically Signed by: JENAE CABALLERO MD Dic Date/Time: 04/16/241457 Sign date/Time: 04/16/24 1459 Procedure Note Jenae Caballero MD - 05/21/2024 [facility] Diagnostic Imaging Department [address] [place] [address] Patient: JONATAN BATES D.O.B./Age/Sex: 1980 - 43 - F Unit#: [id number] [facility] CLI Mnemonic/Ordering Site: [facility] Ordering Physician: LEE ANN ORONA MD [facility] Screening Digital - 04/15/24 - 1316 Report Status:Signed EXAM: [facility] Screening Digital EXAM DATE AND TIME: 04/15/2024 1:24 PM HISTORY: Screening. Paternal aunt had breast carcinoma. COMPARISON: 03/20/23, 03/16/22, 03/14/21 ([facility], [place], [place]) TECHNIQUE: Bilateral digital breast tomosynthesis was performed in the CCand MLO projections. Computer aided detection with iCAD [employer] 3D 3.1was employed. TISSUE DENSITY: b. There [...] Mammogram performed at [facility] [place] [address] Dictating Physician: JENAE CABALLERO MD Electronically Signed by: JENAE CABALLERO MD Dic Date/Time: 04/16/241457 Sign date/Time: 04/16/241458 Lee Ann Orona MD IMG BI PROCEDURES Final Resu lt * Pap smear (06/26/2022) 06/26/2022 Narrative HISTORICAL TESTING LAB RESULTING AGENCY - 07/03/2022 4:15 PM EST [id number] THINPREP PAP, IMAGED: NEGATIVE FOR SQUAMOUS INTRAEPITHELIAL [...] Recently Relevant to Health Maintenance Care Teams Provider Education Specialist Relationship Specialty Start Date End Date Lee Ann Orona MD [address] [place] [address] Dr [address] NICOL Galloway PCP - General Internal Medicine 12/17/17
[2025-08-01 05:18] LABS: Rubeola IgG (Measles) <13.50 AU/mL
== END 2025-07-31 11:21 | disposition home or self-care (01) ==
LOC: HO.LAB 11:20
PROVIDERS: PCP Internal Medicine; Visit Provider Internal Medicine
DX: Z28.39 Other underimmunization status (principal)
CPT/HCPCS: 36415; 86735; 86762; 86765